=== PATIENT | male | born 1945 | race Caucasian/White ===

== ENCOUNTER 2016-12-15 18:20 | Emergency (ER) | payer MEDICARE ==
[2016-12-15 18:26] VITALS: BP 153/79; PULSE 71; TEMP 97.9; BMI 28.5
--- NOTE | 2016-12-15 20:07 | PDOC ---
History of Present Illness - General Chief Complaint: Laceration Stated Complaint: BLEEDING FROM GROIN,On Plavix Time Seen by Provider: 12/15/16 19:28 History Source: Patient, Family Exam Limitations: No Limitations - History of Present Illness Initial Comments: 12/15/16 20:02 She and came to emergency department with complaints of bleeding from groin. States had a small lesion on scrotum, scratched it with very sharp in urinalysis and was unable to stop the bleeding from the area. Patient denies fever, denies any direct trauma, denies any other problems. Is taking Hernandez for cardiac disease is never had a problem this medication. Denies dizziness, chest pain or palpitations, denies any other problems 12/15/16 20:06 12/15/16 20:08 Timing/Duration: reports: just prior to arrival, gone now Severity: Yes: mild Location: reports: none, extremities Respiratory Risk Factors: reports: no cause identified Past History - Travel Traveled outside of the country in the last 30 days: No Close contact w/someone who was outside of country & ill: No - Past Medical History Allergies/Adverse Reactions: Allergies Allergy/AdvReac Type Severity Reaction Status Date / Time No Known Allergies Allergy Verified 12/15/16 18:26 Home Medications: Ambulatory Orders Valsartan [Diovan] 80 mg PO DAILY 05/02/13 Carvedilol [Coreg -] 3.125 mg PO DAILY 07/04/16 Cholecalciferol (Vitamin D3) [Vitamin D3 -] 1,000 unit PO DAILY 07/04/16 Donepezil HCl [Aricept -] 10 mg PO DAILY 07/04/16 Rivaroxaban [Xarelto -] 20 mg PO DAILY #0 07/07/16 Wheat Dextrin [Benefiber] 144 gm PO BID #0 powder 07/07/16 Cardiac Disorders: Yes (ATRIAL FIBRILLATION) Diabetes: Yes GI Disorders: Yes (HEMORROIDS;COLON POLYPS) HTN: Yes Hypercholesterolemia: Yes - Psycho/Social/Smoking Cessation Hx Anxiety: No Suicidal Ideation: No Smoking Status: No Smoking History: Never smoked Number of Cigarettes Smoked Daily: 0 Information on smoking cessation initiated: No Hx Alcohol Use: No Drug/Substance Use Hx: No Substance Use Type: None Review of Systems - Review of Systems Able to Perform ROS?: Yes Is the patient limited Icelandic proficient: Yes Constitutional: Yes: Symptoms Reported, See HPI. No: Fever, Malaise HEENTM: No: Symptoms Reported Respiratory: No: Symptoms reported Musculoskeletal: Yes: Symptoms Reported Integumentary: Yes: See HPI, Lesions Neurological: No: Symptoms reported All Other Systems: Reviewed and Negative *Physical Exam - Vital Signs Last Vital Signs Temp Pulse Resp BP Pulse Ox 97.9 F 71 18 153/79 99 12/15/16 18:24 12/15/16 18:24 12/15/16 18:24 12/15/16 18:24 12/15/16 18:24 - Physical Exam General Appearance: Yes: Appropriately Dressed, Apparent Distress HEENT: positive: DEIRDRE, Normal ENT Inspection, TMs Normal, Pharynx Normal Neck: positive: Supple, Lymphadenopathy (R), Lymphadenopathy (L) Respiratory/Chest: positive: Lungs Clear, Normal Breath Sounds Gastrointestinal/Abdominal: positive: Soft Male Genitalia: positive: normal genitalia, other (patient with small lesion on anterior aspect of the scrotum without tenderness, or active bleed. There is no evidence of pain, swelling, abrasion, varicosity or in the area of abscess. Site of small lesion probable site of bleeding and has been hemostased. 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 No treatment necessary *DC/Admit/Observation/Transfer Diagnosis at time of Disposition: Abrasion - Discharge Dispostion Disposition: HOME Condition at time of disposition: Stable Admit: No - Patient Instructions Printed Discharge Instructions: DI for Abrasion Additional Instructions: If bleeding re-occurs - hold pressure on site for ~ 15-30mins firmly, If unable to stop then call 911/ or come back to ER Drink lots of fluids tonight- water/ soups/ teas Tell PMD about incident today- may wish to see
== END 2016-12-15 20:19 | disposition home or self-care (01) ==
LOC: JERFT 18:20
DX: S30.813A Abrasion of scrotum and testes, initial encounter (principal); W50.4XXA Accidental scratch by another person, initial encounter; Y93.89 Activity, other specified; Y92.038 Other place in apartment as the place of occurrence of the external cause; I48.91 Unspecified atrial fibrillation; Z79.01 Long term (current) use of anticoagulants; I10 Essential (primary) hypertension; E11.9 Type 2 diabetes mellitus without complications; E78.00 Pure hypercholesterolemia, unspecified
CPT/HCPCS: 99281-25

== ENCOUNTER 2017-02-09 15:51 | Inpatient (IN) | payer MEDICARE ==
[2017-02-09] MEDS ORDERED: SODIUM CHLORIDE 1,000 ML IV STA ×2 (16:43→21:18)
--- NOTE | 2017-02-09 16:51 | PDOC ---
History of Present Illness - General Chief Complaint: Blood Pressure Problem Stated Complaint: Blood Pressure Problem Time Seen by Provider: 02/09/17 16:30 History Source: Patient, Family Exam Limitations: Clinical Condition, Language Barrier - History of Present Illness Initial Comments: 02/09/17 16:46 Patient is a 71M with a history of coronary artery disease and afib here today with a complaint of altered mental status. The altered mental status has been going on for the past several days. He can participate in history taking, but is easily distracted and confused. His family members have been filling in the gaps. He's just finished a 5 day course of azithromycin for treatment of a cough with no improvement. The family reports increased lethargy and weakness with decreased PO intake. They also report increased confusion and dysarthria over the past several days. Past History - Past Medical History Allergies/Adverse Reactions: Allergies Allergy/AdvReac Type Severity Reaction Status Date / Time No Known Allergies Allergy Verified 02/09/17 16:23 Home Medications: Ambulatory Orders Valsartan [Diovan] 80 mg PO DAILY 05/02/13 Carvedilol [Coreg -] 3.125 mg PO DAILY 07/04/16 Cholecalciferol (Vitamin D3) [Vitamin D3 -] 1,000 unit PO DAILY 07/04/16 Donepezil HCl [Aricept -] 10 mg PO DAILY 07/04/16 Rivaroxaban [Xarelto -] 20 mg PO DAILY #0 07/07/16 Wheat Dextrin [Benefiber] 144 gm PO BID #0 powder 07/07/16 Isosorbide Mononitrate [Isosorbide Mononitrate ER] 60 mg PO DAILY 12/15/16 Cardiac Disorders: Yes (ATRIAL FIBRILLATION) Diabetes: Yes GI Disorders: Yes (HEMORROIDS;COLON POLYPS) HTN: Yes Hypercholesterolemia: Yes - Psycho/Social/Smoking Cessation Hx Anxiety: No Suicidal Ideation: No Smoking Status: No Smoking History: Unknown if ever smoked Have you smoked in the past 12 months: No Number of Cigarettes Smoked Daily: 0 Information on smoking cessation initiated: No Hx Alcohol Use: No Drug/Substance Use Hx: No Substance Use Type: None Review of Systems - Review of Systems Able to Perform ROS?: No (Altered mental status) *Physical Exam - Vital Signs Last Vital Signs Temp Pulse Resp BP Pulse Ox 78 18 101/65 95 02/09/17 15:51 02/09/17 15:51 02/09/17 15:51 02/09/17 15:51 - Physical Exam Comments: 02/09/17 17:18 Gen: Ill appearing, not interacting with room, tears in eyes CV: irregular rhythm, no murmurs rubs or gallops Lungs: Normal work of breathing, clear to auscultation bilaterally Abd: Soft, nontender, positve bowel sounds Ext: Irregular pulse, no edema Neuro: 5/5 strength in all 4 extremities, alert and oriented to person, place, time and situation, unable to cooperate with gait and cerebellar exams HEENT: atraumatic, normocephalic, slight right sided facial droop ED Treatment Course - LABORATORY CBC & Chemistry Diagram: 02/09/17 18:15 02/09/17 18:15 - ADDITIONAL ORDERS Additional order review: Laboratory Results 02/09/17 02/09/17 02/09/17 18:40 18:30 18:15 INR PTT (Actin FS) VBG pH 7.40 POC VBG pCO2 51.1 POC VBG pO2 27.0 L Mixed VBG HCO3 30.7 H Sodium Potassium Chloride Carbon Dioxide Anion Gap BUN Creatinine Creat Clearance w eGFR Random Glucose Lactic Acid 1.5 Calcium Total Bilirubin AST ALT Alkaline Phosphatase Creatine Kinase Troponin I Total Protein Albumin Urine Color Ltyellow Urine Appearance Clear Urine pH 5.0 Urine Protein Negative Urine Glucose (UA) 1+ H Urine Ketones Negative Urine Blood 1+ H Urine Nitrite Negative Urine Bilirubin Negative Urine Urobilinogen Negative Ur Leukocyte Esterase Negative Urine RBC 1 Urine WBC 2 02/09/17 02/09/17 18:15 18:15 INR 2.85 H PTT (Actin FS) 37.1 H VBG pH POC VBG pCO2 POC VBG pO2 Mixed VBG HCO3 Sodium 138 Potassium 3.7 Chloride 100 Carbon Dioxide 31 Anion Gap 7 L BUN 43 H Creatinine 2.4 H Creat Clearance w eGFR 26.74 Random Glucose 100 Lactic Acid Calcium 9.0 Total Bilirubin 0.6 AST 20 ALT 27 Alkaline Phosphatase 84 Creatine Kinase 90 Troponin I < 0.02 Total Protein 6.9 Albumin 3.9 Urine Color Urine Appearance Urine pH Urine Protein Urine Glucose (UA) Urine Ketones Urine Blood Urine Nitrite Urine Bilirubin Urine Urobilinogen Ur Leukocyte Esterase Urine RBC Urine WBC 02/09/17 18:15 RBC 4.56 MCV 80.6 MCHC 33.0 RDW 13.7 MPV 10.0 Neutrophils % 62.8 Lymphocytes % 24.0 Monocytes % 10.1 Eosinophils % 2.2 Basophils % 0.9 - Medications Given in the ED: ED Medications Discontinued Medications Generic Name Dose Route Start Last Admin Trade Name Shavon PRN Reason Stop Dose Admin Sodium Chloride 1,000 mls @ 1,000 mls/hr 02/09/17 16:43 02/09/17 18:20 Normal Saline - IV 02/09/17 17:42 1,000 mls/hr ASDIR STA Administration Medical Decision Making - Medical Decision Making 02/09/17 17:23 71M with PMH of afib on xarelto, dementia and CAD here today complaining of altered mental status. In afib, HR in the 60s to 70s. Other vital signs normal and stable. Unable to collect proper history from patient directly so differential is very broad and includes, but is not limited to: delirium secondary to medications, UTI, pneumonia, other infections processes, afib. Will give 1L fluids, CT scan and sepsis workup. 02/09/17 19:24 Workup pending. Vital signs stable. Signed out to Dr Arriaga. *DC/Admit/Observation/Transfer Diagnosis at time of Disposition: Altered mental status Qualifiers: Altered mental status type: unspecified Qualified Code(s): R41.82 - Altered mental status, unspecified - Attestations Physician Attestion: 02/09/17 19:25 I, Dr. Franki Garcia, attest that this document has been prepared under my direction and personally reviewed by me in its entirety. I further attest, that it accurately reflects all work, treatment, procedures and medical decision -making performed by me.
--- NOTE | 2017-02-09 18:36 | PDOC ---
Attending Attestation - Resident Resident Name: [email or web address] - ED Attending Attestation I have performed the following: I have examined & evaluated the patient, The case was reviewed & discussed with the resident, I agree w/resident's findings & plan, Exceptions are as noted - HPI HPI: 02/09/17 18:40 71 year old male with past medical history of hypertension, dementia, coronary disease, atrial fibrillation on xarelto presents with confusion and altered mental status her last several days. The patient was noted to be increasingly more weak and with less appetite. He has been with a cough that his doctors prescribed a 5 day course of azithromycin which he just completed today. The family does not think is note improvement of symptoms. Patient denies any chest pain or shortness of breath but is still coughing. The family noted today that he seemed more distant and confused than usual. They think he may be slurring his speech but there is no clear onset of time. Because of increasing confusion , the patient was sent to the ER. - Physicial Exam PE: 02/09/17 18:40 GENERAL: Awake, alert, and oriented times two, in no acute distress. HEAD: No signs of trauma EYES: PERRLA, EOMI, sclera anicteric, conjunctiva clear ENT: Auricles normal inspection, hearing grossly normal, nares patent, oropharynx clear without exudates. NECK: Normal ROM, supple, no lymphadenopathy, JVD, or masses LUNGS: Breath sounds equal, clear to auscultation bilaterally. No wheezes, and no crackles HEART: Irregular rate and rhythm, normal S1 and S2, no murmurs, rubs or gallops ABDOMEN: Soft, nontender, normoactive bowel sounds. No guarding, no rebound. No masses EXTREMITIES: Normal range of motion, no edema. No clubbing or cyanosis. No cords, erythema, or tenderness NEUROLOGICAL: CN II-XII intact, decreased sensation R maxillary region. Slight right sided facial droop. Mild slurring of speech. No pronator drift. 5/5 strength upper and lower extremities. Pt reports different sensations between arms and legs, but cannot specify exactly what is less in intensity. No cerebellar signs. SKIN: Warm, Dry, normal turgor, no rashes or lesions noted. - Medical Decision Making 02/09/17 18:43 The differential is broad for this patient include potentially CVH, stroke, infectious etiology such as pneumonia or cold urinary tract infections or metabolic disarray. The patient will need a head CT, labs including a sepsis protocol and likely admission to the hospital for further evaluation.. Heart Score/ECG Review #1 ECG reviewed & interpreted by me at: 16:20 02/09/17 18:29 atrial fibrillation 70, T wave flat III, no std/corbin, normal axis, QTC 455 msec
[2017-02-09 18:42] LABS: BASOPHIL 0.9 % (0-2.0); EOSINOPHIL 2.2 % (0-4.5); MCH 26.6 pg (25.7-33.7); MEAN CELL VOLUME 80.6 fl (80-96); NEUTROPHILS 62.8 % (42.8-82.8); PLATELET COUNT 155 K/MM3 (134-434); RDW 13.7 % (11.9-15.9); WHITE BLOOD COUNT 7.1 K/mm3 (4.0-10.0)
[2017-02-09 18:46] LABS: VENOUS BLOOD GAS HCO3 30.7 meq/L (19-25); VENOUS PH 7.4 (7.32-7.42)
[2017-02-09 18:49] LABS: INR 2.85 (0.82-1.09)
[2017-02-09 18:51] LABS: ACTIVATED PTT 37.1 SECONDS (26.9-34.4)
[2017-02-09 19:00] LABS: URINE APPEARANCE CLEAR; URINE BILIRUBIN NEGATIVE (NEGATIVE); URINE COLOR LTYELLOW; URINE GLUCOSE (UA) 1+ (NEGATIVE); URINE KETONE NEGATIVE (NEGATIVE); URINE LEUK ESTERASE NEGATIVE (NEGATIVE); URINE NITRITE NEGATIVE (NEGATIVE); URINE PROTEIN NEGATIVE (NEGATIVE); URINE UROBILINOGEN NEGATIVE E.U./dl (0.2-1.0)
[2017-02-09 19:01] LABS: ALBUMIN 3.9 g/dl (3.4-5.0); ANION GAP 7 (8-16); BILIRUBIN,TOTAL 0.6 mg/dL (0.2-1.0); CO2 31 mmol/L (21-32); CREATININE 2.4 mg/dL (0.7-1.3); GLUCOSE,RANDOM 100 mg/dL (74-106); SGOT/AST 20 U/L (15-37); SGPT/ALT 27 U/L (12-78); TOT PROT 6.9 g/dl (6.4-8.2)
[2017-02-09 19:04] LABS: ALK PHOS 84 U/L (45-117); TROPONIN I < 0.02 ng/ml (0.00-0.05)
[2017-02-09 19:09] LABS: URINE BLOOD 1+ (NEGATIVE)
[2017-02-09 19:11] LABS: URINE RBC 1 /hpf (0-3); URINE WBC 2 /hpf (3-5)
--- NOTE | 2017-02-09 19:53 | PDOC ---
*Physical Exam - Vital Signs Last Vital Signs Temp Pulse Resp BP Pulse Ox 78 18 101/65 95 02/09/17 15:51 02/09/17 15:51 02/09/17 15:51 02/09/17 15:51 - Physical Exam Comments: 02/09/17 19:48 GENERAL: Pt. is toxic appearing. Awake, alert, and fully oriented. HEAD: No signs of trauma, normocephalic, atraumatic EYES: PERRLA, EOMI, sclera anicteric, conjunctiva clear ENT: Auricles normal inspection, hearing grossly normal, nares patent, oropharynx clear without exudates. Moist mucosa NECK: Normal ROM, supple, no lymphadenopathy, JVD, or masses LUNGS: No distress, speaks full sentences, clear to auscultation bilaterally HEART: Irregular rhythm. Regular rate, normal S1 and S2, no murmurs, rubs or gallops, peripheral pulses normal and equal bilaterally. ABDOMEN: Soft, nontender, normoactive bowel sounds. No guarding, no rebound. No masses EXTREMITIES: Normal inspection, Normal range of motion, no edema. No clubbing or cyanosis. NEUROLOGICAL: Cranial nerves II through XII grossly intact. Normal speech, normal gait, no focal sensorimotor deficits SKIN: Warm, Dry, normal turgor, no rashes or lesions noted. 02/09/17 19:54 ED Treatment Course - LABORATORY CBC & Chemistry Diagram: 02/09/17 18:15 02/09/17 18:15 - ADDITIONAL ORDERS Additional order review: Laboratory Results 02/09/17 02/09/17 02/09/17 18:40 18:30 18:15 INR PTT (Actin FS) VBG pH 7.40 POC VBG pCO2 51.1 POC VBG pO2 27.0 L Mixed VBG HCO3 30.7 H Sodium Potassium Chloride Carbon Dioxide Anion Gap BUN Creatinine Creat Clearance w eGFR Random Glucose Lactic Acid Calcium Total Bilirubin AST ALT Alkaline Phosphatase Creatine Kinase Troponin I Total Protein Albumin Urine Color Ltyellow Urine Appearance Clear Urine pH 5.0 Urine Protein Negative Urine Glucose (UA) 1+ H Urine Ketones Negative Urine Blood 1+ H Urine Nitrite Negative Urine Bilirubin Negative Urine Urobilinogen Negative Ur Leukocyte Esterase Negative Urine RBC 1 Urine WBC 2 Blood Type O POSITIVE Antibody Screen Negative 02/09/17 02/09/17 02/09/17 18:15 18:15 18:15 INR 2.85 H PTT (Actin FS) 37.1 H VBG pH POC VBG pCO2 POC VBG pO2 Mixed VBG HCO3 Sodium 138 Potassium 3.7 Chloride 100 Carbon Dioxide 31 Anion Gap 7 L BUN 43 H Creatinine 2.4 H Creat Clearance w eGFR 26.74 Random Glucose 100 Lactic Acid 1.5 Calcium 9.0 Total Bilirubin 0.6 AST 20 ALT 27 Alkaline Phosphatase 84 Creatine Kinase 90 Troponin I < 0.02 Total Protein 6.9 Albumin 3.9 Urine Color Urine Appearance Urine pH Urine Protein Urine Glucose (UA) Urine Ketones Urine Blood Urine Nitrite Urine Bilirubin Urine Urobilinogen Ur Leukocyte Esterase Urine RBC Urine WBC Blood Type Antibody Screen 02/09/17 18:15 RBC 4.56 MCV 80.6 MCHC 33.0 RDW 13.7 MPV 10.0 Neutrophils % 62.8 Lymphocytes % 24.0 Monocytes % 10.1 Eosinophils % 2.2 Basophils % 0.9 - Medications Given in the ED: ED Medications Discontinued Medications Generic Name Dose Route Start Last Admin Trade Name Freq PRN Reason Stop Dose Admin Sodium Chloride 1,000 mls @ 1,000 mls/hr 02/09/17 16:43 02/09/17 18:20 Normal Saline - IV 02/09/17 17:42 1,000 mls/hr ASDIR STA Administration Progress Note - Progress Note Progress Note: Mr. Daneils is a 71 yo M who presents with h/o afb, HTN, Dementia, and COPD who presents with altered mental status. Per pt. handoff by Dr. Garcia, the patient has been confused for three days and has recently completed 5 day course of azithromycin for productive cough. He has been deteriorating over the past five days and having increasing fatigue, and weakness, and slurred speech. Family at bedside to provide report. Medical Decision Making - Medical Decision Making 02/09/17 19:58 Received Pt. Handoff from Dr. Garcia. Mr. Daniels is a 71 yo male with h/o afib, COPD, HTN, and Dementia who presents for altered mental status. He has recently received antibiotic treatment for cough with no improvement over the past five days. Family reports change in baseline activity and cognitive level with slurred speech. Given pt. comobordities and age we are actively investigating mental status change 2/2 to infectious etiology. ED course: - CBC, CMP - UA and culture - Blood Culture - Lactate - CT head: Subacute Basal Ganglia Infarct - CXR: unremarkable 02/09/17 20:04 CBC unremarkable CMP- Creatinine 2.4, BUN 43 UA- Negative Nitiries, leukocyte esterase VBG- PO2: 27 Mixed HCO3- 37 02/09/17 21:25 Heart Score - 5 02/09/17 21:36 1L NaCl *DC/Admit/Observation/Transfer Diagnosis at time of Disposition: Basal ganglia infarction, Generalized weakness, Confusion, Acute renal insufficiency Dementia Qualifiers: Dementia type: unspecified type Dementia behavioral disturbance: without behavioral disturbance Qualified Code(s): F03.90 - Unspecified dementia without behavioral disturbance - Discharge Dispostion Condition at time of disposition: Unchanged/Unknown Admit: Yes - Referrals Referrals: Shaun Marie MD [Primary Care Provider] - - Patient Instructions - Post Discharge Activity - Attestations Physician Attestion: 02/09/17 22:46 I, Dr. Vinnie Arriaga, attest that this document has been prepared under my direction and personally reviewed by me in its entirety. I further attest, that it accurately reflects all work, treatment, procedures and medical decision -making performed by me. *Heart Score (ED) - History History: Slightly suspicious - Electrocardiogram EKG: Non specific repolarization disturbance - Age Age: >/= 65 - Risk Factors Risk Factors Heart Score: Yes Hx Hypercholesterolemia, Yes Hx Hypertension, Yes Hx Diabetes Based on the list above the patient has:: >/=3 risk factors or Hx atherosclerotic disease - Troponin Troponin: </= normal limit - Score Heart Score - Total: 5
--- NOTE | 2017-02-09 20:19 | PDOC ---
*Physical Exam - Vital Signs Last Vital Signs Temp Pulse Resp BP Pulse Ox 78 18 101/65 95 02/09/17 15:51 02/09/17 15:51 02/09/17 15:51 02/09/17 15:51 <NoahJo - Last Filed: 02/09/17 21:01> - Vital Signs Last Vital Signs Temp Pulse Resp BP Pulse Ox 78 18 101/65 95 02/09/17 15:51 02/09/17 15:51 02/09/17 15:51 02/09/17 15:51 <Carlos Curtis - Last Filed: 02/09/17 21:22> ED Treatment Course - LABORATORY CBC & Chemistry Diagram: 02/09/17 18:15 02/09/17 18:15 - ADDITIONAL ORDERS Additional order review: Laboratory Results 02/09/17 02/09/17 02/09/17 18:40 18:30 18:15 INR PTT (Actin FS) VBG pH 7.40 POC VBG pCO2 51.1 POC VBG pO2 27.0 L Mixed VBG HCO3 30.7 H Sodium Potassium Chloride Carbon Dioxide Anion Gap BUN Creatinine Creat Clearance w eGFR Random Glucose Lactic Acid Calcium Total Bilirubin AST ALT Alkaline Phosphatase Creatine Kinase Troponin I Total Protein Albumin Urine Color Ltyellow Urine Appearance Clear Urine pH 5.0 Urine Protein Negative Urine Glucose (UA) 1+ H Urine Ketones Negative Urine Blood 1+ H Urine Nitrite Negative Urine Bilirubin Negative Urine Urobilinogen Negative Ur Leukocyte Esterase Negative Urine RBC 1 Urine WBC 2 Blood Type O POSITIVE Antibody Screen Negative 02/09/17 02/09/17 02/09/17 18:15 18:15 18:15 INR 2.85 H PTT (Actin FS) 37.1 H VBG pH POC VBG pCO2 POC VBG pO2 Mixed VBG HCO3 Sodium 138 Potassium 3.7 Chloride 100 Carbon Dioxide 31 Anion Gap 7 L BUN 43 H Creatinine 2.4 H Creat Clearance w eGFR 26.74 Random Glucose 100 Lactic Acid 1.5 Calcium 9.0 Total Bilirubin 0.6 AST 20 ALT 27 Alkaline Phosphatase 84 Creatine Kinase 90 Troponin I < 0.02 Total Protein 6.9 Albumin 3.9 Urine Color Urine Appearance Urine pH Urine Protein Urine Glucose (UA) Urine Ketones Urine Blood Urine Nitrite Urine Bilirubin Urine Urobilinogen Ur Leukocyte Esterase Urine RBC Urine WBC Blood Type Antibody Screen 02/09/17 18:15 RBC 4.56 MCV 80.6 MCHC 33.0 RDW 13.7 MPV 10.0 Neutrophils % 62.8 Lymphocytes % 24.0 Monocytes % 10.1 Eosinophils % 2.2 Basophils % 0.9 - Medications Given in the ED: ED Medications Discontinued Medications Generic Name Dose Route Start Last Admin Trade Name Shavon PRN Reason Stop Dose Admin Sodium Chloride 1,000 mls @ 1,000 mls/hr 02/09/17 16:43 02/09/17 18:20 Normal Saline - IV 02/09/17 17:42 1,000 mls/hr ASDIR STA Administration <Jo Zamora - Last Filed: 02/09/17 21:01> - LABORATORY CBC & Chemistry Diagram: 02/09/17 18:15 02/09/17 18:15 - ADDITIONAL ORDERS Additional order review: Laboratory Results 02/09/17 02/09/17 02/09/17 18:40 18:30 18:15 INR PTT (Actin FS) VBG pH 7.40 POC VBG pCO2 51.1 POC VBG pO2 27.0 L Mixed VBG HCO3 30.7 H Sodium Potassium Chloride Carbon Dioxide Anion Gap BUN Creatinine Creat Clearance w eGFR Random Glucose Lactic Acid Calcium Total Bilirubin AST ALT Alkaline Phosphatase Creatine Kinase Troponin I Total Protein Albumin Urine Color Ltyellow Urine Appearance Clear Urine pH 5.0 Urine Protein Negative Urine Glucose (UA) 1+ H Urine Ketones Negative Urine Blood 1+ H Urine Nitrite Negative Urine Bilirubin Negative Urine Urobilinogen Negative Ur Leukocyte Esterase Negative Urine RBC 1 Urine WBC 2 Blood Type O POSITIVE Antibody Screen Negative 02/09/17 02/09/17 02/09/17 18:15 18:15 18:15 INR 2.85 H PTT (Actin FS) 37.1 H VBG pH POC VBG pCO2 POC VBG pO2 Mixed VBG HCO3 Sodium 138 Potassium 3.7 Chloride 100 Carbon Dioxide 31 Anion Gap 7 L BUN 43 H Creatinine 2.4 H Creat Clearance w eGFR 26.74 Random Glucose 100 Lactic Acid 1.5 Calcium 9.0 Total Bilirubin 0.6 AST 20 ALT 27 Alkaline Phosphatase 84 Creatine Kinase 90 Troponin I < 0.02 Total Protein 6.9 Albumin 3.9 Urine Color Urine Appearance Urine pH Urine Protein Urine Glucose (UA) Urine Ketones Urine Blood Urine Nitrite Urine Bilirubin Urine Urobilinogen Ur Leukocyte Esterase Urine RBC Urine WBC Blood Type Antibody Screen 02/09/17 18:15 RBC 4.56 MCV 80.6 MCHC 33.0 RDW 13.7 MPV 10.0 Neutrophils % 62.8 Lymphocytes % 24.0 Monocytes % 10.1 Eosinophils % 2.2 Basophils % 0.9 - RADIOLOGY Radiology Studies Ordered: Category Date Time Status CXRPORT [CHEST X-RAY PORTABLE*] [RAD] Stat Radiology 02/09/17 20:18 Ordered - Medications Given in the ED: ED Medications Discontinued Medications Generic Name Dose Route Start Last Admin Trade Name Shavon PRN Reason Stop Dose Admin Sodium Chloride 1,000 mls @ 1,000 mls/hr 02/09/17 16:43 02/09/17 18:20 Normal Saline - IV 02/09/17 17:42 1,000 mls/hr ASDIR STA Administration <Carlos Curtis - Last Filed: 02/09/17 21:22> Progress Note - Progress Note Progress Note: Patients CT scan reveals a subacute L basal ganglia infarct, which is new since MRI done on 02/05/2016. A new chest x-ray study reordered. No white count. Urine is clean. Chemistry panel shows some renal insufficiency and no previous labs to compare with. Pt INR is elevated to 2.85. Will work towards admission and notify Dr. Shaun Marie regarding patients status. <Jo Zamora - Last Filed: 02/09/17 21:01> Medical Decision Making - Medical Decision Making 02/09/17 20:[address] Shaun Marie (via answering service) Awaiting call back 02/09/17 20:43 Patient's case discussed with Dr. Marie 02/09/17 20:[address] Vinay Howard (via answering service) Awaiting call back 02/09/17 21:01 Patient's case discussed with Dr. Howard <Jo Zamora - Last Filed: 02/09/17 21:01> - Medical Decision Making 02/09/17 21:21 Patient will be admitted and hydrated. Dr. Marie and Dr. Howard notified. Dr. 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 <Carlos Curtis - Last Filed: 02/09/17 21:22> *DC/Admit/Observation/Transfer - Attestations Scribe Attestion: 02/09/17 20:25 Documentation prepared by Jo Zamora, acting as spanish medical interpreter for Carlos Curtis MD/DO. <Jo Zamora - Last Filed: 02/09/17 21:01> <Carlos Curtis - Last Filed: 02/09/17 21:22> Diagnosis at time of Disposition: Basal ganglia infarction, Generalized weakness, Confusion, Acute renal insufficiency Dementia Qualifiers: Dementia type: unspecified type Dementia behavioral disturbance: without behavioral disturbance Qualified Code(s): F03.90 - Unspecified dementia without behavioral disturbance - Discharge Dispostion Condition at time of disposition: Unchanged/Unknown - Referrals Referrals: Shaun Marie MD [Primary Care Provider] - - Patient Instructions - Post Discharge Activity
[2017-02-09 23:57] VITALS: BMI 25.4
[2017-02-10] MEDS: DEXTROSE 5%-0.45% SALINE 1,000 ML IV SCH ×2 (00:15→21:17)
[2017-02-10 07:14] LABS: MCH 27.2 pg (25.7-33.7); MCHC 33.7 g/dl (32.0-35.9); MEAN CELL VOLUME 80.8 fl (80-96); MEAN PLT VOLUME 10.1 fl (7.5-11.1); PLATELET COUNT 141 K/MM3 (134-434); RDW 13.3 % (11.9-15.9); WHITE BLOOD COUNT 6.6 K/mm3 (4.0-10.0)
[2017-02-10 07:49] LABS: ALBUMIN 3.4 g/dl (3.4-5.0); ANION GAP 8 (8-16); CALCIUM 8.5 mg/dL (8.5-10.1); CO2 28 mmol/L (21-32); CREATININE 1.5 mg/dL (0.7-1.3); GLUCOSE,RANDOM 113 mg/dL (74-106); SGOT/AST 20 U/L (15-37); SGPT/ALT 24 U/L (12-78); TOT PROT 6.2 g/dl (6.4-8.2)
[2017-02-10 07:53] LABS: ALK PHOS 75 U/L (45-117); BILIRUBIN,TOTAL 0.9 mg/dL (0.2-1.0)
--- NOTE | 2017-02-10 09:27 | HP ---
Admitting History and Physical - Primary Care Physician PCP: Shaun Marie - Admission Chief Complaint: AMS History of Present Illness: ER HISTORY History of Present Illness Initial Comments: 02/09/17 16:46 Patient is a 71M with a history of coronary artery disease and afib here today with a complaint of altered mental status. The altered mental status has been going on for the past several days. He can participate in history taking, but is easily distracted and confused. His family members have been filling in the gaps. He's just finished a 5 day course of azithromycin for treatment of a cough with no improvement. The family reports increased lethargy and weakness with decreased PO intake. They also report increased confusion and dysarthria over the past several days. Pt examined by me in Telemetry Lying in bed, lethargic but arousable Follows commands Ex alcoholic, also suffers from depression no c/o SOB, cough, chest pain History Source: Patient, Medical Record Limitations to Obtaining History: Physical Impairment - Past Medical History Cardiovascular: Yes: AFIB, CAD, HTN - Smoking History Smoking history: Former smoker Have you smoked in the past 12 months: No Aproximately how many cigarettes per day: 0 If you are a former smoker, when did you quit?: 10 YEARS AGO - Alcohol/Substance Use Hx Alcohol Use: No Home Medications - Allergies Allergies/Adverse Reactions: Allergies Allergy/AdvReac Type Severity Reaction Status Date / Time No Known Allergies Allergy Verified 02/09/17 16:23 - Home Medications Home Medications: Ambulatory Orders Valsartan [Diovan] 80 mg PO DAILY 05/02/13 Cholecalciferol (Vitamin D3) [Vitamin D3 -] 1,000 unit PO DAILY 07/04/16 Rivaroxaban [Xarelto -] 20 mg PO DAILY #0 07/07/16 Atorvastatin Ca [Lipitor] 10 mg PO HS 02/09/17 Isosorbide Mononitrate [Imdur -] 30 mg PO DAILY 02/09/17 Memantine HCl/Donepezil HCl [Namzaric 28 mg-10 mg Capsule] 1 each PO DAILY 02/09 Metoprolol Succinate [Toprol Xl] 50 mg PO DAILY 02/09/17 Mirtazapine [Remeron -] 15 mg PO HS 02/09/17 Review of Systems - Review of Systems Constitutional: denies: Chills, Fever, Lethargy, Loss of Appetite, Unintentional Wgt. Loss, Weakness Cardiovascular: denies: Chest Pain Respiratory: denies: Cough, SOB Genitourinary: denies: Burning, Dysuria, Flank Pain Physical Examination Vital Signs: Vital Signs Temperature 98.1 F 02/10/17 06:00 Pulse Rate 80 02/10/17 06:00 Respiratory Rate 20 02/10/17 06:00 Blood Pressure 124/79 02/10/17 06:00 O2 Sat by Pulse Oximetry (%) 98 02/09/17 23:15 Constitutional: Yes: No Distress, Calm Cardiovascular: Yes: Pulse Irregular Respiratory: Yes: CTA Bilaterally Gastrointestinal: Yes: Normal Bowel Sounds, Soft, Abdomen, Obese. No: Distention, Tenderness Neurological: No: Aphasia, Ataxia ...Motor Strength: WNL Psychiatric: Yes: Alert Labs: CBC, BMP 02/10/17 05:35 02/10/17 05:35 Imaging - Results Chest X-ray: Image Reviewed (clear) Cat Scan: Report Reviewed EKG: Image Reviewed (Afib) Problem List - Problems (1) Acute renal insufficiency Code(s): N28.9 - DISORDER OF KIDNEY AND URETER, UNSPECIFIED (2) Basal ganglia infarction Code(s): I63.9 - CEREBRAL INFARCTION, UNSPECIFIED (3) Confusion Code(s): R41.0 - DISORIENTATION, UNSPECIFIED (4) Dementia Code(s): F03.90 - UNSPECIFIED DEMENTIA WITHOUT BEHAVIORAL DISTURBANCE Qualifiers: Dementia type: unspecified type Dementia behavioral disturbance: without behavioral disturbance Qualified Code(s): F03.90 - Unspecified dementia without behavioral disturbance (5) Generalized weakness Code(s): R53.1 - WEAKNESS (6) Altered mental state Code(s): R41.82 - ALTERED MENTAL STATUS, UNSPECIFIED Qualifiers: Altered mental status type: unspecified Qualified Code(s): R41.82 - Altered mental status, unspecified (7) Afib Code(s): I48.91 - UNSPECIFIED ATRIAL FIBRILLATION Assessment/Plan PLAN Telemetry Neuro and Cardio eval Swallow eval NPO IV fluids PT eval carotid doppler echo will speak with family no evidence of infection Brain MRI continue with Xarelto pending swallow eval Time spent 45min
[2017-02-10] MEDS: RIVAROXABAN 20 MG TABLET PO SCH ×2 (10:14→15:45)
[2017-02-10] MEDS: METOPROLOL SUCCINATE 50 MG TAB.SR.24H (FP) PO SCH ×2 (10:14→15:45)
[2017-02-10] MEDS: ISOSORBIDE MONONITRATE 30 MG TAB.SR.24H (FP) PO SCH ×2 (10:14→15:45)
[2017-02-10] MEDS: MEMANTINE PO SCH ×2 (10:14→15:45)
[2017-02-10] MEDS: [UNRECOGNIZED DRUG - OTHER] PO SCH ×2 (10:14→15:45)
--- NOTE | 2017-02-10 10:25 | CON.CARD ---
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 basal ganglia infarct. States over the past month has had significant decrease in po intake and has lost > 10 lbs. + worsening of depressive symptoms. Over the past week bp's have been significantly lower than baseline (in 100's). + recent uri with cough and congestion--> tx with abx. + dizziness, unstable gait + stable exertional cp no orthopnea, pnd, le edema, palps, bleeding. no f/c/s, n/v/d, headache, increased urinary frequency. Since our last office visit he had R/LHC to evaluate sx's of exertional cp and inducible phtn. Current Medications Atorvastatin Calcium (Lipitor -) 10 mg PO [facility] Dextrose/Sodium Chloride (D5-1/2ns -) 1,000 mls @ 100 mls/hr IV ASDIR [facility] Last Admin: 02/10/17 00:15 Dose: 100 mls/hr Isosorbide Mononitrate (Imdur -) 30 mg PO DAILY [facility] Last Admin: 02/10/17 10:14 Dose: Not Given Metoprolol Succinate (Toprol Xl -) 50 mg PO DAILY [facility] Last Admin: 02/10/17 10:14 Dose: Not Given Memantine 28mg/Donepezil 10mg *Er* Capsule 1 each PO DAILY [facility] Last Admin: 02/10/17 10:14 Dose: Not Given Pneumococcal 13-Valent Conj Vacc (Prevnar 13 Syringe -) 0.5 ml IM .ONCE ONE Stop: 02/10/17 10:01 Rivaroxaban (Xarelto -) 20 mg PO DAILY [facility] Last Admin: 02/10/17 10:14 Dose: Not Given Vital Signs - 24 hr 02/09/17 02/09/17 02/09/17 15:51 22:47 23:15 Temperature 97.7 F 97.8 F Pulse Rate 78 76 Pulse Rate [ 72 Right Radial] Respiratory 18 16 18 Rate Blood Pressure 101/65 115/74 Blood Pressure 116/73 [Right Arm] O2 Sat by Pulse 95 98 98 Oximetry (%) 02/09/17 02/10/1717 23:30 02:00 06:00 Temperature 97.6 F 97.5 F L 98.1 F Pulse Rate 73 80 Pulse Rate [ Right Radial] Respiratory 20 20 Rate Blood Pressure 116/68 124/79 Blood Pressure [Right Arm] O2 Sat by Pulse Oximetry (%) Intake & Output 02/08/17 02/09/17 02/10/17 02/11/17 07:59 07:59 07:59 07:59 Intake Total 675 Output Total 500 Balance 175 Weight 170 lb 9.6 oz lethargic, but responsive jvd flat, neck supple ctab, nl effort rrr nl s1, s2 no mrg + bs soft nt nd ext without e/c/c + dp/pt no carotid bruits no jaundice, diahporesis CBC, BMP 02/10/17 05:35 02/10/17 05:35 Laboratory Tests 02/09/17 02/09/17 02/10/17 18:15 18:15 05:35 INR 2.85 H Creatinine 2.4 H Total Bilirubin 0.9 D AST 20 ALT 24 Alkaline Phosphatase 75 Albumin 3.4 EKG: afib. no acute ischemic changes tele: afib, freq pvc's CXR: wnl brain mri: negative for infarct head ct here: acute/subacute lt basal ganglia infarct carotid u/s: no sig stenosis Echo 11/2016: afib. nl lv size/fn ef 60-65%. Mild rv dilation, nl function. 1+ susan. 1+ ar/mr. cath [facility] [place]/2017: LVEDP 15, RA 7 mPAP 20 . pRCA < 30% but with significant vasospasm noted (Relieved by ntg), d [id number]%, TO of OM1 (small - fills via LAD collaterals --> no intervention) 09/2016 stress echo: afib with aberrant conduction,--> pvc's, triplets in recovery. 0.5 mm inferior std in recovery. --> non-diagnostic. At rest. Mild inducible HK of basal inferior wall. RV dilation (preserved function) and severe pHTN with stress. Mod MR with stress. 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 basal ganglia infarct. AMS - ? lt basal ganglia infarct on head ct but not on MRI. will defer to neuro. Per neuro ok to con't xarelto. - patient also with underlying dementia and presented with NEL. Monitor for improvement with improving creatinine - ? etiology of recent poor po intake. patient with h/o prior etoh abuse as well as severe depression --> possible relapse? Will defer to pmd/neuro - tsh, other lab work pending. CAD - stable anginal sx's. ekg without ischemic changes. trop neg x 1. Recent cath last month with ++ vasospasm, + cad but no intervenable disease - con't statin, imdur. ? whether BB contributing to possible depressive symptoms. Will switch to verapamil and stop metoprolol/imdur. - no asa, on AC NEL/hypotension - likely 2/2 poor po intake. improving with ivf. - infectious eval per pmd afib - rate controlled, con't av john blockade and AC with xarelto. - patient has previously failed to maintain therapeutic inr's on coumadin -inducible phtn - no phtn at rest. normal right sided pressures on recent cath. ? whether vasospasm contributing vs. diastolic dysfunction - not contributing to current sx's. ongoing outpatient mgm't htn - as above hl - statin
--- NOTE | 2017-02-10 10:41 | CON.NEURO ---
Consult Consult Specialty:: Neurology Reason for Consultation:: stroke - History of Present Illness Chief Complaint: unsteadiness History of Present Illness: Over the last week and a half the patient has seemed more off balance and confused. Yesterday, his tried to take him out and while they were waiting for a bus he almost fell and so they went home, and he was brought to ER. He complains of left sided weakness, but I'm not sure about his reliability. His family reports that he normally walks, but he's been unsteady over the last week and a half, and worse yesterday. They say that he has mild dementia but has been more confused, particularly yesterday. - History Source History Provided By: Patient, Family Member, Medical Record Limitations to Obtaining History: Dementia - Past Medical History MEDICATION ASSISTANT: Yes: Dementia, Other (tremor) Cardio/Vascular: Yes: AFIB, CAD, HTN - Alcohol/Substance Use Hx Alcohol Use: No - Smoking History Smoking history: Former smoker Have you smoked in the past 12 months: No Aproximately how many cigarettes per day: 0 If you are a former smoker, when did you quit?: 10 YEARS AGO Home Medications - Allergies Allergies/Adverse Reactions: Allergies Allergy/AdvReac Type Severity Reaction Status Date / Time No Known Allergies Allergy Verified 02/09/17 16:23 - Home Medications Home Medications: Ambulatory Orders Valsartan [Diovan] 80 mg PO DAILY 05/02/13 Cholecalciferol (Vitamin D3) [Vitamin D3 -] 1,000 unit PO DAILY 07/04/16 Rivaroxaban [Xarelto -] 20 mg PO DAILY #0 07/07/16 Atorvastatin Ca [Lipitor] 10 mg PO HS 02/09/17 Isosorbide Mononitrate [Imdur -] 30 mg PO DAILY 02/09/17 Memantine HCl/Donepezil HCl [Namzaric 28 mg-10 mg Capsule] 1 each PO DAILY 02/09 Metoprolol Succinate [Toprol Xl] 50 mg PO DAILY 02/09/17 Mirtazapine [Remeron -] 15 mg PO HS 02/09/17 Review of Systems - Review of Systems Neurological: reports: Confusion, Tremors, Unsteady Gait Physical Exam-Neuro Vital Signs: Vital Signs Temperature 98.1 F 02/10/17 06:00 Pulse Rate 80 02/10/17 06:00 Respiratory Rate 20 02/10/17 06:00 Blood Pressure 124/79 02/10/17 06:00 O2 Sat by Pulse Oximetry (%) 98 02/09/17 23:15 Labs: CBC, BMP 02/10/17 05:35 02/10/17 05:35 INR, PTT INR 2.85 (0.82-1.09) H 02/09/17 18:15 NIH Stroke Scale - Total Score NIH Stroke Scale Score: 0 Imaging - Results Cat Scan: Report Reviewed (Image not available. Acute to subacute left basal ganglia infarction. Old cerebellar infarcts.) Problem List - Problems (1) Basal ganglia infarction Assessment/Plan: Although I don't think that this occurred yesterday, it may be part of why he's been altered over the last couple of weeks. Will need MRI brain if no contraindications and carotid dopplers. Continue xarelto. Code(s): I63.9 - CEREBRAL INFARCTION, UNSPECIFIED (2) Confusion Assessment/Plan: although stroke may have contributed, would also consider metabolic and cardiovascular possibilities. Code(s): R41.0 - DISORIENTATION, UNSPECIFIED
--- NOTE | 2017-02-10 12:32 | CONSULT ---
Admitting History and Physical - Primary Care Physician PCP: Josephine Otoole - Admission History of Present Illness: Per EMR: "71 year old male with past medical history of hypertension, dementia, coronary disease, atrial fibrillation on xarelto presents with confusion and altered mental status her last several days. The patient was noted to be increasingly more weak and with less appetite. He has been with a cough that his doctors prescribed a 5 day course of azithromycin which he just completed today. The family does not think is note improvement of symptoms. Patient denies any chest pain or shortness of breath but is still coughing. The family noted today that he seemed more distant and confused than usual. They think he may be slurring his speech but there is no clear onset of time. Because of increasing confusion , the patient was sent to the ER." Pt is bilingual. Oriented to [facility], [place], 2017, not month,age. He reports change in his speech. Noted twitches, jumpiness. He told me he drinks 3-4 beer daily. He quit smoking 10 years ago. Selected Entries 02/09/17 02/09/17 02/09/17 22:47 23:15 23:30 Temperature 97.7 F 97.8 F 97.6 F 02/10/17 02/10/17 02/10/17 02:00 06:00 10:00 Temperature 97.5 F L 98.1 F 97.9 F 02/10/17 14:46 Temperature 98.5 F Laboratory Tests 02/09/17 02/10/17 18:15 05:35 WBC 7.1 6.6 History Source: Patient, Medical Record Limitations to Obtaining History: Clinical Condition, Dementia - Past Medical History EDGE PLUGGER: Yes: Dementia, Other (tremor) Cardiovascular: Yes: AFIB, CAD, HTN - Smoking History Smoking history: Former smoker Have you smoked in the past 12 months: No Aproximately how many cigarettes per day: 0 If you are a former smoker, when did you quit?: 10 YEARS AGO - Alcohol/Substance Use Hx Alcohol Use: No History - Admission Reason For Visit: BASAL GANGLIA INFRACTION. - Diagnostics CT Scan: Report Reviewed (Acute to subacute left basal ganglia infarction.Several cerebellar infarcts of indeterminate age.) MRI: Report Reviewed ((-) acute stroke.) - General Mental Status: Awake and Alert, Able to Follow Commands, Forgetful, Intermittently Confused Attention: Intact Ability to Follow Directions: Fair Head/Neck Control: Fair - Hearing Hearing: Normal Hearing Aide: No Speech Evaluation - Communication Primary Language: ITALIAN Secondary Language: IRISH (functional) Communication: Yes: Simple Responses, Language Barrier Oral Expression Ability: Yes: Mild Impairment, Moderate Impairment - Speech Production Able to Make Needs Known: Yes: Mildly Impaired, Moderately Impaired Intelligibility: Yes: Mildly Impaired, Moderately Impaired - Speech Characteristics Voice Loudness: Mildly Soft/Quiet Voice Pitch: Yes: Mildly High, Excessive Variation, Pitch Breaks Voice Phonatory-based Quality: Yes: Dysphonia Speech Pattern: Impaired Speech Clarity: < 50% Nasal Resonance: Normal Articulation: Yes: Imprecise Rate of Speech: Intact - Language/Auditory Comprehension Follows: Yes: 1 Stage Simple Commands Observation: Able to respond to yes/no queries: Yes, Comprehends Conversational Speech: Yes, Benefits from Slow Speech: Yes, Benefits from Repetiton: Yes - Language/Verbal Expression Able to Respond to Simple Queries: Yes: Mildly Impaired - Swallow Evaluation/Bedside Assessment Current Nutritional Intake: NPO Oral Secretions: Yes: WFL Dentition: Yes: Missing Teeth Facial Symmetry at Rest: Symmetrical Facial Symmetry on Retraction: Symmetrical Jaw Position: Open at Rest Against Resistance Opening: Normal Against Resistance Closing: Normal Pucker Lips: Normal Smile: Normal Lingual Movement: Normal Laryngeal Movement: Able to Palpate Rate of Intake: WFL Bolus Size: WFL Labial Seal: WFL Chewing: WFL Oral Prep Time: WFL A-P Transit: WFL Pocketing: None Timing of Swallow: Delayed Coughing/Throat Clear: No Change in Voice: No Recommendations - Speech Evaluation, Impression/Plan Impression: Impaired speech production with dysphonia, ataxic-like.Twitches/ jerky movements. Somewhat oriented. h/o dementia. MRI (-).Overtly able to masticate/tolerate thin liquid from a straw. Pt reports change in his speech. Family not present. Reports drinking 3-4 beer daily. - Dysphagia Impressions/Plan Dysphagia Impressions: Mild Impairment *Silent aspiration: cannot be R/O at bedside Dysphagia Treatment Plan: Small Bites, Chin Tuck/Down, Elevate HOB during feed, Other (assist with meals. Feed slowly.) Recommendations: Modified Barium Swallow (if cough, congestion, fever, throat clearing.) - Recommendations Diet Consistency: Regular (soft) Medication Administration: Whole with water Liquids: Thin Liquids
[2017-02-10] MEDS ORDERED: PNEUMOC 13-VAL CONJ-DIP CRM/PF 0.5 ML DISP.SYRIN IM ONE (13:00)
[2017-02-10] MEDS: ATORVASTATIN CA 10 MG TABLET (FP) PO SCH (21:16)
[2017-02-10] MEDS: KCL 10 MEQ IVPB 100 ML IVPB SCH ×2 (22:31→23:37)
[2017-02-11] MEDS: KCL 10 MEQ IVPB 100 ML IVPB SCH (01:46)
[2017-02-11 08:47] LABS: ANION GAP 7 (8-16); CALCIUM 8.5 mg/dL (8.5-10.1); CO2 31 mmol/L (21-32); GLUCOSE,RANDOM 111 mg/dL (74-106)
[2017-02-11 08:53] LABS: CHOLESTEROL 115 mg/dL (50-200)
[2017-02-11] MEDS: DEXTROSE 5%-0.45% SALINE 1,000 ML IV SCH (09:00)
--- NOTE | 2017-02-11 10:05 | PN ---
Progress Note (short form) - Note Progress Note: s: no cp sob palps dizzy o: Vital Signs Period Temp Pulse Resp BP Sys/Johnson Pulse Ox Last 24 Hr 97.9 F-98.9 F 66-83 18-18 106-135/50-80 97 nad jvd flat, neck supple ctab, nl effort rrr nl s1, s2 no mrg + bs soft nt nd ext without e/c/c no jaundice, diahporesis alert awake appropriate Current Medications Generic Name Dose Route Start Last Admin Trade Name Freq PRN Reason Stop Dose Admin Atorvastatin Calcium 10 mg 02/10/17 22:00 02/10/17 21:16 Lipitor - PO 10 mg HS VIVIANA Administration Dextrose/Sodium Chloride 1,000 mls @ 100 mls/hr 02/10/17 02:30 02/10/17 21:17 D5-1/2ns - IV 100 mls/hr ASDIR VIVIANA Administration Memantine 28mg/ 1 each 02/10/17 10:00 02/10/17 15:45 Donepezil 10mg *Er* PO 1 each Capsule DAILY VIVIANA Administration Rivaroxaban 15 mg 02/11/17 10:00 Xarelto - PO DAILY VIVIANA Verapamil HCl 120 mg 02/11/17 10:00 Calan Sr - PO DAILY VIVIANA CBC, BMP 02/10/17 05:35 02/11/17 05:35 tele: afib,rate controlled CXR: wnl brain mri: negative for infarct head ct here: acute/subacute lt basal ganglia infarct carotid u/s: no sig stenosis Echo 11/2016: afib. nl lv size/fn ef 60-65%. Mild rv dilation, nl function. 1+ susan. 1+ ar/mr. cath [facility] [place] 01/2017: LVEDP 15, RA 7 mPAP 20 . pRCA < 30% but with significant vasospasm noted (Relieved by ntg), d [id number]%, TO of OM1 (small - fills via LAD collaterals --> no intervention) 09/2016 stress echo: afib with aberrant conduction,--> pvc's, triplets in recovery. 0.5 mm inferior std in recovery. --> non-diagnostic. At rest. Mild inducible HK of basal inferior wall. RV dilation (preserved function) and severe pHTN with stress. Mod MR with stress. 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 basal ganglia infarct. AMS - ? lt basal ganglia infarct on head ct but not on MRI. will defer to neuro. Per neuro ok to con't xarelto. - patient also with underlying dementia and presented with NEL. Monitor for improvement with improving creatinine - ? etiology of recent poor po intake. patient with h/o prior etoh abuse as well as severe depression --> possible relapse? CAD - stable, no signs acs - Recent cath last month with ++ vasospasm, + cad but no intervenable disease - con't statin, imdur. ? whether BB contributing to possible depressive symptoms so switched to verapamil and stopped metoprolol/imdur here - no asa, on AC NEL/hypotension - likely 2/2 poor po intake. improving with ivf. - infectious eval per pmd afib - rate controlled, con't av john blockade and AC with xarelto. - patient has previously failed to maintain therapeutic inr's on coumadin -inducible phtn - no phtn at rest. normal right sided pressures on recent cath. ? whether vasospasm contributing vs. diastolic dysfunction - not contributing to current sx's. ongoing outpatient mgm't htn - as above hld - statin
--- NOTE | 2017-02-11 10:09 | PN ---
Progress Note, Physician Chief Complaint: family at bedside pt sitting up in chair at baseline son states that the pt does get depressed thinking about family members who have passes away eating well - Current Medication List Current Medications: Active Medications Atorvastatin Calcium (Lipitor -) 10 mg PO HS [facility] Last Admin: 02/10/17 21:16 Dose: 10 mg Dextrose/Sodium Chloride (D5-1/2ns -) 1,000 mls @ 100 mls/hr IV ASDIR [facility] Last Admin: 02/10/17 21:17 Dose: 100 mls/hr Memantine 28mg/Donepezil 10mg *Er* Capsule 1 each PO DAILY [facility] Last Admin: 02/10/17 15:45 Dose: 1 each Rivaroxaban (Xarelto -) 15 mg PO DAILY [facility] Verapamil HCl (Calan Sr -) 120 mg PO DAILY [facility] - Objective Vital Signs: Vital Signs Temperature 98.3 F 02/11/17 06:00 Pulse Rate 77 02/11/17 06:00 Respiratory Rate 18 02/11/17 06:00 Blood Pressure 121/50 02/11/17 06:00 O2 Sat by Pulse Oximetry (%) 97 02/10/17 21:00 Constitutional: Yes: No Distress, Calm Cardiovascular: Yes: Pulse Irregular Respiratory: Yes: CTA Bilaterally Gastrointestinal: Yes: Normal Bowel Sounds, Soft. No: Distention, Tenderness Edema: No Labs: CBC, BMP 02/10/17 05:35 02/11/17 05:35 INR, PTT INR 2.85 (0.82-1.09) H 02/09/17 18:15 Problem List - Problems (1) Acute renal insufficiency Code(s): N28.9 - DISORDER OF KIDNEY AND URETER, UNSPECIFIED (2) Basal ganglia infarction Code(s): I63.9 - CEREBRAL INFARCTION, UNSPECIFIED (3) Confusion Code(s): R41.0 - DISORIENTATION, UNSPECIFIED (4) Dementia Code(s): F03.90 - UNSPECIFIED DEMENTIA WITHOUT BEHAVIORAL DISTURBANCE Qualifiers: Dementia type: unspecified type Dementia behavioral disturbance: without behavioral disturbance Qualified Code(s): F03.90 - Unspecified dementia without behavioral disturbance (5) Generalized weakness Code(s): R53.1 - WEAKNESS (6) Afib Code(s): I48.91 - UNSPECIFIED ATRIAL FIBRILLATION Assessment/Plan PLAN Telemetry Neuro and Cardio eval appreciated Swallow eval noted dc IV fluids PT eval carotid doppler-- negative Brain MRI does not show infarct pt was an ex alcoholic, also depressed start Thiamine, will also start low dose antidepressant- son agreed no evidence of infection-- cultures negative renal function improved continue with Xarelto
[2017-02-11] MEDS: RIVAROXABAN 15 MG TABLET PO SCH (10:45)
[2017-02-11] MEDS: VERAPAMIL HCL 120 MG E.R. TABLET PO SCH (10:45)
[2017-02-11] MEDS: [UNRECOGNIZED DRUG - OTHER] PO SCH (10:45)
[2017-02-11] MEDS: MEMANTINE PO SCH (10:45)
--- NOTE | 2017-02-11 10:55 | PN ---
Progress Note (short form) - Note Progress Note: 71 year old male known to me for outpt, with past medical history of hypertension, dementia, coronary disease, atrial fibrillation on xarelto presents with confusion and altered mental status her last several days. The patient was noted to be increasingly more weak and with less appetite. He has been with a cough that his doctors prescribed a 5 day course of azithromycin . noted for elevated creatinine on admission. low BP. MRI (-) for new stroke, see below. back to baseline, Exam: baseline dementia, recognizes family, aware of place, EOMI, mild tremor, no focal weakness Reports. Impression: Mild intimal thickening at the right common carotid bifurcation without evidence of hemodynamically significance seen cyst. Moderate intimal thickening in the distal left common carotid artery and at the bifurcation with small plaques and without evidence of hemodynamically significant stenosis. Borderline peak systolic velocity in the proximal left internal carotid artery likely due to tortuosity. 02/10/17 Status: [place] [address] Unit Number: [id number] EXAM#: TYPE/EXAM: RESULT: [id number] MRI/BRAIN MRI W/O CONTRAST Clinical formation stroke MRI of the brain without IV contrast enhancement. Multiple pulse sequences were completed utilizing the [employer] 1.5T. Signa MRI system. Sagittal: T1. Axial: T2, FLAIR, T2 gradient echo, diffusion- weighted. Coronal. T1 FLAIR. Comparison study. CT brain February 09, 2017, MRI of the brain February 05, 2016. Findings. The intracranial contents are shown well from the [place] to the cranial vertex. No evidence of acute ischemia, edema or hemorrhage. There is no mass effect, midline shift, intra or extra axial collections. Periventricular caps, bands attributable to breakdown of ependymal lining, increase extra-axial fluid and subependymal gliosis noted. Several foci of increased signal intensity observed in the subcortical white matter on the basis of chronic small vessel microangiopathic ischemic changes. Generalized loss of volume of the brain parenchyma with involutional changes Normal corpus callosum is noted. The major caliber vascular structures including the [place] and peripheral dural venous sinuses show normal flow-void signal characteristics. No abnormality seen in the pontomedullary junction region. No evidence of tonsillar ectopia. No abnormalities are seen in the sella, suprasellar region. Normal pituitary infundibulum, optic chiasm. The orbits are within normal limits. Symmetrical optic nerves, extraocular muscles. Normal signal intensity of retro orbital fat. No abnormalities are seen in region of CP angle cisterns. Nonspecific mucosal changes are seen in the left sphenoid sinus. The nasal septum is deviated to the right side. Normal signal intensity of the calvarium. Impression. No acute infarct is seen on diffusion-weighted images. AP: Encephalopathy, AFIB , underlying dementia -- no new stroke, likely ARF and low BP contributing issues --looking better. may need to adjust BP meds -- given low BP. stable from neuro stand point. Dr Howard [phone] .
[2017-02-11 11:39] LABS: LDL CHOLESTEROL (ONLY SJRH) 63 mg/dL (5-100)
[2017-02-11 11:47] LABS: THYROID STIMULATING HORMONE 0.93 uIU/ml (0.358-3.74)
[2017-02-11] MEDS: THIAMINE HCL 100 MG TABLET (FP) PO SCH (13:58)
--- NOTE | 2017-02-11 14:23 | PN ---
Progress Note, JUDICIAL REPORTER - Note Progress Note: Per neurology-Encephalopathy, AFIB , underlying dementia -- no new stroke Speech much improved since yesterday, with more euphonic voicing and let twitching. Selected Entries 02/10/17 02/10/17 02/10/17 02:00 06:00 10:00 Breakfast Intake, Oral Amount Supper Temperature 97.5 F L 98.1 F 97.9 F 02/10/17 02/10/17 02/10/17 14:46 18:00 21:00 Breakfast Intake, Oral Amount Supper 50% Temperature 98.5 F 98.9 F 98.4 F 02/11/17 02/11/17 02/11/17 01:42 06:00 09:59 Breakfast 75% Intake, Oral 420 Amount Supper Temperature 97.9 F 98.3 F 02/11/17 02/11/17 10:43 10:45 Breakfast 75% Intake, Oral 100 Amount Supper Temperature 98 F tolerating diet well.
[2017-02-11] MEDS: ATORVASTATIN CA 10 MG TABLET (FP) PO SCH (22:17)
[2017-02-12 06:23] VITALS: TEMP 98.4
[2017-02-12] MEDS ORDERED: PT OWN MED DRAWER 7, Y5N ONE (08:36)
[2017-02-12] MEDS: MEMANTINE PO SCH (09:57)
[2017-02-12] MEDS: THIAMINE HCL 100 MG TABLET (FP) PO SCH (09:57)
[2017-02-12] MEDS: [UNRECOGNIZED DRUG - OTHER] PO SCH (09:57)
[2017-02-12] MEDS: VERAPAMIL HCL 120 MG E.R. TABLET PO SCH (09:57)
[2017-02-12] MEDS: RIVAROXABAN 15 MG TABLET PO SCH (09:57)
--- NOTE | 2017-02-12 10:21 | PN ---
Progress Note, Physician Chief Complaint: no complaints states he feels shaky at times - Current Medication List Current Medications: Active Medications Atorvastatin Calcium (Lipitor -) 10 mg PO HS [facility] Last Admin: 02/11/17 22:17 Dose: 10 mg Memantine 28mg/Donepezil 10mg *Er* Capsule 1 each PO DAILY [facility] Last Admin: 02/12/17 09:57 Dose: 1 each Rivaroxaban (Xarelto -) 15 mg PO DAILY [facility] Last Admin: 02/12/17 09:57 Dose: 15 mg Thiamine HCl (Vitamin B1 -) 100 mg PO DAILY [facility] Last Admin: 02/12/17 09:57 Dose: 100 mg Verapamil HCl (Calan Sr -) 120 mg PO DAILY [facility] Last Admin: 02/12/17 09:57 Dose: Not Given - Objective Vital Signs: Vital Signs Temperature 98.4 F 02/12/17 06:00 Pulse Rate 73 02/12/17 10:00 Respiratory Rate 18 02/12/17 06:00 Blood Pressure 98/58 02/12/17 10:00 O2 Sat by Pulse Oximetry (%) 96 02/11/17 20:57 Constitutional: Yes: No Distress, Calm Cardiovascular: Yes: Pulse Irregular Respiratory: Yes: CTA Bilaterally Gastrointestinal: Yes: Normal Bowel Sounds, Soft. No: Distention, Tenderness Edema: No Labs: CBC, BMP 02/10/17 05:35 02/11/17 05:35 INR, PTT INR 2.85 (0.82-1.09) H 02/09/17 18:15 Problem List - Problems (1) Acute renal insufficiency Code(s): N28.9 - DISORDER OF KIDNEY AND URETER, UNSPECIFIED (2) Confusion Code(s): R41.0 - DISORIENTATION, UNSPECIFIED (3) Dementia Code(s): F03.90 - UNSPECIFIED DEMENTIA WITHOUT BEHAVIORAL DISTURBANCE Qualifiers: Dementia type: unspecified type Dementia behavioral disturbance: without behavioral disturbance Qualified Code(s): F03.90 - Unspecified dementia without behavioral disturbance (4) Generalized weakness Code(s): R53.1 - WEAKNESS (5) Afib Code(s): I48.91 - UNSPECIFIED ATRIAL FIBRILLATION Assessment/Plan PLAN Telemetry Neuro and Cardio eval appreciated Swallow eval noted dc IV fluids PT eval carotid doppler-- negative Brain MRI does not show infarct likely due to BP meds BP low today Will dc Verapamil and observe-- spoke with Indexer no evidence of infection-- cultures negative renal function improved continue with Xarelto
--- NOTE | 2017-02-12 10:28 | PN ---
Progress Note (short form) - Note Progress Note: s: no cp sob palps dizzy o: Vital Signs Period Temp Pulse Resp BP Sys/Johnson Pulse Ox Last 24 Hr 97.6 F-98.4 F 68-112 16-18 88-154/53-102 96 nad jvd flat, neck supple ctab, nl effort rrr nl s1, s2 no mrg + bs soft nt nd ext without e/c/c no jaundice, diahporesis alert awake appropriate Current Medications Generic Name Dose Route Start Last Admin Trade Name Freq PRN Reason Stop Dose Admin Atorvastatin Calcium 10 mg 02/10/17 22:00 02/11/17 22:17 Lipitor - PO 10 mg HS VIVIANA Administration Memantine 28mg/ 1 each 02/10/17 10:00 02/12/17 09:57 Donepezil 10mg *Er* PO 1 each Capsule DAILY VIVIANA Administration Rivaroxaban 15 mg 02/11/17 10:00 02/12/17 09:57 Xarelto - PO 15 mg DAILY VIVIANA Administration Thiamine HCl 100 mg 02/11/17 12:30 02/12/17 09:57 Vitamin B1 - PO 100 mg DAILY VIVIANA Administration Laboratory Last Values WBC 6.6 K/mm3 (4.0-10.0) 02/10/17 05:35 RBC 4.66 M/mm3 (4.00-5.60) 02/10/17 05:35 Hgb 12.7 GM/dL (11.7-16.9) 02/10/17 05:35 Hct 37.6 % (35.4-49) 02/10/17 05:35 MCV 80.8 fl (80-96) 02/10/17 05:35 MCH 27.2 pg (25.7-33.7) 02/10/17 05:35 MCHC 33.7 g/dl (32.0-35.9) 02/10/17 05:35 RDW 13.3 % (11.9-15.9) 02/10/17 05:35 Plt Count 141 K/MM3 (134-434) 02/10/17 05:35 MPV 10.1 fl (7.5-11.1) 02/10/17 05:35 Neutrophils % 62.8 % (42.8-82.8) 02/09/17 18:15 Lymphocytes % 24.0 % (8-40) 02/09/17 18:15 Monocytes % 10.1 % (3.8-10.2) 02/09/17 18:15 Eosinophils % 2.2 % (0-4.5) 02/09/17 18:15 Basophils % 0.9 % (0-2.0) 02/09/17 18:15 INR 2.85 (0.82-1.09) H 02/09/17 18:15 PTT (Actin FS) 37.1 SECONDS (26.9-34.4) H 02/09/17 18:15 VBG pH 7.40 (7.32-7.42) 02/09/17 18:40 POC VBG pCO2 51.1 mmHg (38-52) 02/09/17 18:40 POC VBG pO2 27.0 mmHg (28-48) L 02/09/17 18:40 Mixed VBG HCO3 30.7 meq/L (19-25) H 02/09/17 18:40 Sodium 141 mmol/L (136-145) 02/11/17 05:35 Potassium 3.8 mmol/L (3.5-5.1) 02/11/17 05:35 Chloride 103 mmol/L (98-107) 02/11/17 05:35 Carbon Dioxide 31 mmol/L (21-32) 02/11/17 05:35 Anion Gap 7 (8-16) L 02/11/17 05:35 BUN 17 mg/dL (7-18) D 02/11/17 05:35 Creatinine 1.0 mg/dL (0.7-1.3) D 02/11/17 05:35 Creat Clearance w eGFR 46.00 (>60) 02/10/17 05:35 Random Glucose 111 mg/dL (74-106) H 02/11/17 05:35 Lactic Acid 1.5 mmol/L (0.4-2.0) 02/09/17 18:15 Calcium 8.5 mg/dL (8.5-10.1) 02/11/17 05:35 Total Bilirubin 0.9 mg/dL (0.2-1.0) D 02/10/17 05:35 AST 20 U/L (15-37) 02/10/17 05:35 ALT 24 U/L (12-78) 02/10/17 05:35 Alkaline Phosphatase 75 U/L (45-117) 02/10/17 05:35 Creatine Kinase 90 IU/L (39-308) 02/09/17 18:15 Troponin I < 0.02 ng/ml (0.00-0.05) 02/09/17 18:15 Total Protein 6.2 g/dl (6.4-8.2) L 02/10/17 05:35 Albumin 3.4 g/dl (3.4-5.0) 02/10/17 05:35 Triglycerides 78 mg/dL (35-160) 02/11/17 05:35 Cholesterol 115 mg/dL (50-200) 02/11/17 05:35 Total LDL Cholesterol 63 mg/dL (5-100) 02/11/17 05:35 HDL Cholesterol 46 mg/dL (40-60) 02/11/17 05:35 Vitamin B12 Cancelled 02/11/17 09:45 TSH 0.93 uIU/ml (0.358-3.74) 02/11/17 05:35 Urine Color Ltyellow 02/09/17 18:30 Urine Appearance Clear 02/09/17 18:30 Urine pH 5.0 (5.0-8.0) 02/09/17 18:30 Ur Specific [place] 1.010 (1.005-1.025) 02/09/17 18:30 Urine Protein Negative (NEGATIVE) 02/09/17 18:30 Urine Glucose (UA) 1+ (NEGATIVE) H 02/09/17 18:30 Urine Ketones Negative (NEGATIVE) 02/09/17 18:30 Urine Blood 1+ (NEGATIVE) H 02/09/17 18:30 Urine Nitrite Negative (NEGATIVE) 02/09/17 18:30 Urine Bilirubin Negative (NEGATIVE) 02/09/17 18:30 Urine Urobilinogen Negative E.U./dl (0.2-1.0) 02/09/17 18:30 Ur Leukocyte Esterase Negative (NEGATIVE) 02/09/17 18:30 Urine RBC 1 /hpf (0-3) 02/09/17 18:30 Urine WBC 2 /hpf (3-5) 02/09/17 18:30 RPR Titer Nonreactive (NONREACTIVE) 02/11/17 05:35 Blood Type O POSITIVE 02/09/17 18:15 Antibody Screen Negative 02/09/17 18:15 tele: afib,rate controlled CXR: wnl brain mri: negative for infarct head ct here: acute/subacute lt basal ganglia infarct carotid u/s: no sig stenosis Echo 11/2016: afib. nl lv size/fn ef 60-65%. Mild rv dilation, nl function. 1+ susan. 1+ ar/mr. cath [facility] 01/2017: LVEDP 15, RA 7 mPAP 20 . pRCA < 30% but with significant vasospasm noted (Relieved by ntg), d [id number]%, TO of OM1 (small - fills via LAD collaterals --> no intervention) 09/2016 stress echo: afib with aberrant conduction,--> pvc's, triplets in recovery. 0.5 mm inferior std in recovery. --> non-diagnostic. At rest. Mild inducible HK of basal inferior wall. RV dilation (preserved function) and severe pHTN with stress. Mod MR with stress. 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 basal ganglia infarct. AMS - no new cva per neuro. Per neuro ok to con't xarelto. - patient also with underlying dementia and presented with NEL. - possibly related to episodes of hypotension and today with sbp 90s with orthostatic changes so will dc verapamil for now and monitor bp response CAD - stable, no signs acs - Recent cath last month with ++ vasospasm, + cad but no intervenable disease - con't statin, xarelto. BP too low with orthostatic changes for nitrates, bb, ccb at this time so holding NEL/hypotension - likely 2/2 poor po intake. improving with ivf. afib -rate controlled but bp low with orthostatic changes so not tolerating even lower dose rate meds. Holding rate meds for now. Will need outpt cardio f/u to assess rate control/bp. -cont ac with xarelto -inducible phtn - no phtn at rest. normal right sided pressures on recent cath. ? whether vasospasm contributing vs. diastolic dysfunction - not contributing to current sx's. ongoing outpatient mgm't htn - as above hld - statin Monitor bp/hr for now, if stable then ok for dc later today with close outpt cardiology f/u.
--- NOTE | 2017-02-12 11:42 | DS ---
Physical Examination Vital Signs: Vital Signs Temperature 98.4 F 02/12/17 06:00 Pulse Rate 86 02/12/17 11:35 Respiratory Rate 16 02/12/17 11:35 Blood Pressure 96/61 02/12/17 11:35 O2 Sat by Pulse Oximetry (%) 99 02/12/17 09:00 Constitutional: Yes: No Distress, Calm Cardiovascular: Yes: Pulse Irregular Respiratory: Yes: CTA Bilaterally Gastrointestinal: Yes: Normal Bowel Sounds, Soft, Abdomen, Obese. No: Distention, Tenderness Edema: No Labs: CBC, BMP 02/10/17 05:35 02/11/17 05:35 Discharge Summary Reason For Visit: overmedication Current Active Problems Acute renal insufficiency (Acute) Afib (Acute) Confusion (Acute) Dementia (Acute) Generalized weakness (Acute) Hospital Course: patient was admitted for altered mental status, low blood pressure.CT head was initially read as acute basal ganglia infarct but MRI of the brain that was done afterwards did not show any infarcts. He was seen by a neurologist as well as seamer elastic band. Septic workup done and is negative. No source of infection. Blood pressure was noted to be low and his medications were discontinued. Lastly verapamil was also discontinued. Telemetry was uneventful Carotid Doppler normal Final diagnoses over medicated with blood pressure pills, depression Patient eating better Ambulating with physical therapy but needs walker, home PT as well as visiting nurse services. Spoke with family members Stable for discharge home Condition: Improved - Instructions Referrals: Daniel Son MD [Staff Physician] - Vinay Howard DO [Staff Physician] - Shaun Marie MD [Primary Care Provider] - Disposition: VNS/HOME HEALTH CARE - Home Medications Comprehensive Discharge Medication List: Ambulatory Orders Cholecalciferol (Vitamin D3) [Vitamin D3 -] 1,000 unit PO DAILY 07/04/16 Atorvastatin Ca [Lipitor] 10 mg PO HS 02/09/17 Memantine HCl/Donepezil HCl [Namzaric 28 mg-10 mg Capsule] 1 each PO DAILY 02/09 Rivaroxaban [Xarelto -] 15 mg PO DAILY #30 tablet 02/12/17 Thiamine HCl [Vitamin B1 -] 100 mg PO DAILY #30 tablet 02/12/17
[2017-02-12 11:52] VITALS: BP 96/61; PULSE 86
--- NOTE | 2017-02-12 13:14 | EKG ---
Test Reason : Blood Pressure : / mmHG Vent. Rate : 070 BPM Atrial Rate : 340 BPM P-R Int : 000 ms QRS Dur : 078 ms QT Int : 422 ms P-R-T Axes : 000 -01 094 degrees QTc Int : 455 ms ATRIAL FIBRILLATION ABNORMAL QRS-T ANGLE, CONSIDER PRIMARY T WAVE ABNORMALITY ABNORMAL ECG NO PREVIOUS ECGS AVAILABLE Confirmed by DEEPTI MUÑOZ MD ([id number]) on 02/12/2017 1:14:23 PM Referred By: Confirmed By:DEEPTI MUÑOZ MD
== END 2017-02-12 11:55 | disposition home health service (06) | DRG 917 ==
LOC: JER 15:51 → JERBED 20:52 → J4S 23:38
PROVIDERS: ADMIT Internal Medicine; ATTEND Internal Medicine
DX: T50.991A Poisoning by other drugs, medicaments and biological substances, accidental (unintentional), initial encounter (principal); G93.40 Encephalopathy, unspecified; I25.10 Atherosclerotic heart disease of native coronary artery without angina pectoris; I48.91 Unspecified atrial fibrillation; Z79.01 Long term (current) use of anticoagulants; F03.90 Unspecified dementia, unspecified severity, without behavioral disturbance, psychotic disturbance, mood disturbance, and anxiety; I10 Essential (primary) hypertension; J44.9 Chronic obstructive pulmonary disease, unspecified; D64.9 Anemia, unspecified; I95.9 Hypotension, unspecified; Z87.891 Personal history of nicotine dependence; I95.2 Hypotension due to drugs; F10.10 Alcohol abuse, uncomplicated; N28.9 Disorder of kidney and ureter, unspecified
CPT/HCPCS: 36415; 70450-TC; 70551-TC; 71010-TC; 80048; 80053; 80061; 81003; 81015; 82550; 82607; 82803; 83605; 83721; 84443; 84484; 85025; 85027; 85610; 85730; 86593; 86850; 86900; 86901; 87040; 87086; 90670; 93005; 93010; 93306-TC; 93880-TC; 97116-GP; 97161-GP; 99283-25

== ENCOUNTER 2017-05-25 16:02 | Observation (INO) | payer MEDICARE ==
--- NOTE | 2017-05-25 16:32 | PDOC ---
History of Present Illness - General Chief Complaint: Lethargy Stated Complaint: WEAKNESS Time Seen by Provider: 05/25/17 16:16 History Source: Patient, Family Exam Limitations: Clinical Condition, Dementia - History of Present Illness Initial Comments: 05/25/17 16:21 The patient is a 72M with a PMH of hypertension, dementia, coronary disease, atrial fibrillation on xarelto who presents to the ED with confusion and AMS. He is accompanied with his family who state that he has "not been himself" for 2 weeks. They state that he has been shaking and rolling his eyes in the back of his head. Past History - Past Medical History Allergies/Adverse Reactions: Allergies Allergy/AdvReac Type Severity Reaction Status Date / Time No Known Allergies Allergy Verified 05/25/17 16:17 Home Medications: Ambulatory Orders Cholecalciferol (Vitamin D3) [Vitamin D3 -] 1,000 unit PO DAILY 07/04/16 Memantine HCl/Donepezil HCl [Namzaric 28 mg-10 mg Capsule] 1 each PO DAILY 02/09 Rivaroxaban [Xarelto -] 20 mg PO DAILY 05/25/17 Cardiac Disorders: Yes (AFIB) Diabetes: Yes GI Disorders: Yes (HEMORROIDS;COLON POLYPS) HTN: Yes Hypercholesterolemia: Yes - Surgical History Orthopedic Surgery: Yes (R ANKLE SX) - Suicide/Smoking/Psychosocial Hx Smoking Status: No Smoking History: Former smoker Have you smoked in the past 12 months: No Number of Cigarettes Smoked Daily: 0 If you are a former smoker, when did you quit?: 10 YEARS AGO Hx Alcohol Use: No Drug/Substance Use Hx: No Substance Use Type: Alcohol Hx Substance Use Treatment: No (QUIT DRINKING 10 YEARS AGO) Review of Systems - Review of Systems Able to Perform ROS?: No (demented) *Physical Exam - Physical Exam General Appearance: Yes: Nourished, Appropriately Dressed. No: Apparent Distress, Disheveled HEENT: positive: Hearing Grossly Normal Respiratory/Chest: negative: Chest Tender, Lungs Clear (coarse lung sounds b/l) , Normal Breath Sounds Cardiovascular: positive: Regular Rhythm, Regular Rate, S1, S2. negative: Diastolic Murmur, Systolic Murmur Gastrointestinal/Abdominal: positive: Flat, Soft. negative: Tender, Guarding, Rebound, Tenderness Extremity: negative: Swelling, Calf Tenderness Integumentary: positive: Dry, Warm. negative: Clammy, Diaphoresis Neurologic: negative: Fully Oriented, Alert, Normal Mood/Affect Heart Score/ECG Review - ECG Impressions Comment:: 05/25/17 18:35 A-fib rate 80 QRS 70 QTC 447 ED Treatment Course - LABORATORY CBC & Chemistry Diagram: 05/25/17 16:23 05/25/17 16:23 Medical Decision Making - Medical Decision Making 05/25/17 18:28 The patient is a 72M who presented with AMS and shaking. Need to r/o seizure- like activity. Lactate 2.3. Spoke with Dr. Otoole, who accepts admission. *DC/Admit/Observation/Transfer Diagnosis at time of Disposition: Confusion Afib Qualifiers: Atrial fibrillation type: chronic Qualified Code(s): I48.2 - Chronic atrial fibrillation Dementia Qualifiers: Dementia type: unspecified type Dementia behavioral disturbance: with behavioral disturbance Qualified Code(s): F03.91 - Unspecified dementia with behavioral disturbance - Discharge Dispostion Condition at time of disposition: Stable Admit: Yes - Referrals Referrals: Josephine Otoole MD [Primary Care Provider] -
[2017-05-25] MEDS ORDERED: SODIUM CHLORIDE 0.9% 1000 ML INFUS.BAG IV ONE (16:55)
[2017-05-25 17:17] LABS: BASOPHIL 0.9 % (0-2.0); EOSINOPHIL 1.5 % (0-4.5); MCH 27.4 pg (25.7-33.7); MCHC 32.8 g/dl (32.0-35.9); MEAN CELL VOLUME 83.6 fl (80-96); MEAN PLT VOLUME 9.6 fl (7.5-11.1); PLATELET COUNT 224 K/MM3 (134-434); RDW 13.2 % (11.9-15.9); WHITE BLOOD COUNT 6.9 K/mm3 (4.0-10.0)
[2017-05-25 17:33] LABS: INR 1.88 (0.82-1.09); PROTHROMBIN TIME (PATIENT) 21.2 SEC (9.98-11.88)
[2017-05-25 17:35] LABS: ACTIVATED PTT 34.9 SECONDS (26.9-34.4)
[2017-05-25 17:42] LABS: VENOUS BLOOD GAS HCO3 26.8 meq/L (19-25); VENOUS PH 7.38 (7.32-7.42)
[2017-05-25 17:44] LABS: ALBUMIN 3.7 g/dl (3.4-5.0); ANION GAP 9 (8-16); BILIRUBIN,TOTAL 0.5 mg/dL (0.2-1.0); CO2 27 mmol/L (21-32); CREATININE 1.2 mg/dL (0.7-1.3); GLUCOSE,RANDOM 92 mg/dL (74-106); SGOT/AST 22 U/L (15-37); SGPT/ALT 34 U/L (12-78)
[2017-05-25 17:47] LABS: ALK PHOS 102 U/L (45-117); CPK 148 IU/L (39-308); TOT PROT 7.4 g/dl (6.4-8.2); TROPONIN I < 0.02 ng/ml (0.00-0.05)
[2017-05-25] MEDS ORDERED: PIPERACILLIN/TAZOB 3.375 GM/50 ML PRE-DOCKED IV ONE (18:23)
[2017-05-25] MEDS ORDERED: VANCOMYCIN 1,000 MG in DEXTROSE 5%-WATER - 250 ML IVPB ONE (18:23)
[2017-05-25] MEDS ORDERED: VANCOMYCIN 1 GRAM (PRE-DOCKED) 250 ML IVPB ONE (18:35)
[2017-05-25] MEDS ORDERED: PIPERACILLIN/TAZOB 3.375 GM 50 ML IVPB ONE (18:36)
[2017-05-25 19:15] LABS: URINE APPEARANCE CLEAR; URINE BILIRUBIN NEGATIVE (NEGATIVE); URINE BLOOD NEGATIVE (NEGATIVE); URINE COLOR STRAW; URINE GLUCOSE (UA) NEGATIVE (NEGATIVE); URINE KETONE NEGATIVE (NEGATIVE); URINE NITRITE NEGATIVE (NEGATIVE); URINE PROTEIN NEGATIVE (NEGATIVE); URINE UROBILINOGEN NEGATIVE mg/dL (0.2-1.0)
[2017-05-25] MEDS ORDERED: ACETAMINOPHEN 325 MG TABLET (FP) PO PRN (19:29)
[2017-05-25] MEDS: DEXTROSE 5%-0.45% SALINE 1,000 ML IV SCH (20:39)
[2017-05-25 20:57] VITALS: BMI 24.2
[2017-05-25 22:10] LABS: URINE LEUK ESTERASE Negative (NEGATIVE)
[2017-05-26 07:51] LABS: BASOPHIL 1.4 % (0-2.0); EOSINOPHIL 1.6 % (0-4.5); MCH 27.1 pg (25.7-33.7); MCHC 32.3 g/dl (32.0-35.9); MEAN PLT VOLUME 9.7 fl (7.5-11.1); NEUTROPHILS 54.7 % (42.8-82.8); PLATELET COUNT 200 K/MM3 (134-434); RDW 12.9 % (11.9-15.9); WHITE BLOOD COUNT 6.7 K/mm3 (4.0-10.0)
[2017-05-26 08:09] LABS: ALBUMIN 3.4 g/dl (3.4-5.0); ANION GAP 11 (8-16); CALCIUM 8.8 mg/dL (8.5-10.1); CO2 27 mmol/L (21-32); GLUCOSE,RANDOM 83 mg/dL (74-106)
[2017-05-26 08:15] LABS: ALK PHOS 81 U/L (45-117); BILIRUBIN,TOTAL 0.6 mg/dL (0.2-1.0); CREATININE 0.9 mg/dL (0.7-1.3); SGOT/AST 19 U/L (15-37); SGPT/ALT 27 U/L (12-78); TOT PROT 6.6 g/dl (6.4-8.2)
[2017-05-26] MEDS: RIVAROXABAN 20 MG TABLET PO SCH (09:40)
[2017-05-26] MEDS: CEFTRIAXONE 1 G/50 ML PREMIX 50 ML IVPB SCH (09:40)
[2017-05-26] MEDS: DEXTROSE 5%-0.45% SALINE 1,000 ML IV SCH (09:41)
[2017-05-26] MEDS ORDERED: PATIENT'S OWN MEDICATION (NON-FORMULARY) (Memantine Hcl/Donepezil Hcl [Namzaric 28 Mg-10 M PO SCH (10:00)
--- NOTE | 2017-05-26 11:47 | HP ---
Admitting History and Physical - Primary Care Physician PCP: Shaun Marie - Admission Chief Complaint: AMS History of Present Illness: ER HISTORY History of Present Illness Initial Comments: 05/25/17 16:21 The patient is a 72M with a PMH of hypertension, dementia, coronary disease, atrial fibrillation on xarelto who presents to the ED with confusion and AMS. He is accompanied with his family who state that he has "not been himself" for 2 weeks. They state that he has been shaking and rolling his eyes in the back of his head. 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) Cardiovascular: Yes: AFIB, CAD, HTN - Smoking History Smoking history: Former smoker Have you smoked in the past 12 months: No Aproximately how many cigarettes per day: 0 If you are a former smoker, when did you quit?: 10 YEARS AGO - Alcohol/Substance Use Hx Alcohol Use: No Home Medications - Allergies Allergies/Adverse Reactions: Allergies Allergy/AdvReac Type Severity Reaction Status Date / Time No Known Allergies Allergy Verified 05/25/17 16:17 - Home Medications Home Medications: Ambulatory Orders Cholecalciferol (Vitamin D3) [Vitamin D3 -] 1,000 unit PO DAILY 07/04/16 Memantine HCl/Donepezil HCl [Namzaric 28 mg-10 mg Capsule] 1 each PO DAILY 02/09 Rivaroxaban [Xarelto -] 20 mg PO DAILY 05/25/17 Review of Systems Unable to obtain ROS, reason: dementia Physical Examination Vital Signs: Vital Signs Temperature 98.1 F 05/26/17 10:00 Pulse Rate 83 05/26/17 10:00 Respiratory Rate 18 05/26/17 10:00 Blood Pressure 146/94 05/26/17 10:00 O2 Sat by Pulse Oximetry (%) 98 05/26/17 09:00 Constitutional: Yes: No Distress, Calm Cardiovascular: Yes: Pulse Irregular Respiratory: Yes: CTA Bilaterally Gastrointestinal: Yes: Normal Bowel Sounds, Soft. No: Abdomen, Obese, Distention, Tenderness Edema: No Neurological: Yes: Alert, Other (follows commands) Psychiatric: Yes: Alert Labs: CBC, BMP 05/26/17 07:25 05/26/17 07:25 Imaging - Results Chest X-ray: Image Reviewed (no infiltrates, congestion) Cat Scan: Report Reviewed (CT head-) EKG: Image Reviewed (Afib) Problem List - Problems (1) Afib Code(s): I48.91 - UNSPECIFIED ATRIAL FIBRILLATION Qualifiers: Atrial fibrillation type: chronic Qualified Code(s): I48.2 - Chronic atrial fibrillation; I48.2 - Chronic atrial fibrillation; I48.2 - Chronic atrial fibrillation; I48.2 - Chronic atrial fibrillation (2) Confusion Code(s): R41.0 - DISORIENTATION, UNSPECIFIED (3) Dementia Code(s): F03.90 - UNSPECIFIED DEMENTIA WITHOUT BEHAVIORAL DISTURBANCE Qualifiers: Dementia type: unspecified type Dementia behavioral disturbance: with behavioral disturbance Qualified Code(s): F03.91 - Unspecified dementia with behavioral disturbance; F03.91 - Unspecified dementia with behavioral disturbance; F03.91 - Unspecified dementia with behavioral disturbance; F10.97 - Alcohol use, unspecified with alcohol-induced persisting dementia; F10.97 - Alcohol use, unspecified with alcohol-induced persisting dementia; F10.97 - Alcohol use, unspecified with alcohol-induced persisting dementia (4) Abrasion Code(s): T14.8 - OTHER INJURY OF UNSPECIFIED BODY REGION * DO NOT USE * Assessment/Plan PLAN worsening dementia unsure of ifectious source-- empiric antibiotics started Neurology evaluation Cultures pending, if negative, will dc antibiotics PT eval iv fluids for another 24 hours DVT prophylaxis-- Heparin sc
[2017-05-26] MEDS: MEGESTROL ACETATE 400 MG/10 ML UNIT DOSE CUP PO SCH (12:28)
--- NOTE | 2017-05-26 15:25 | CON.NEURO ---
Consult - Past Medical History [employer] IN[employer]: Yes: Dementia, Other (tremor) Cardio/Vascular: Yes: AFIB, CAD, HTN - Alcohol/Substance Use Hx Alcohol Use: No - Smoking History Smoking history: Former smoker Have you smoked in the past 12 months: No Aproximately how many cigarettes per day: 0 If you are a former smoker, when did you quit?: 10 YEARS AGO Home Medications - Allergies Allergies/Adverse Reactions: Allergies Allergy/AdvReac Type Severity Reaction Status Date / Time No Known Allergies Allergy Verified 05/25/17 16:17 - Home Medications Home Medications: Ambulatory Orders Cholecalciferol (Vitamin D3) [Vitamin D3 -] 1,000 unit PO DAILY 07/04/16 Memantine HCl/Donepezil HCl [Namzaric 28 mg-10 mg Capsule] 1 each PO DAILY 02/09 Rivaroxaban [Xarelto -] 20 mg PO DAILY 05/25/17 Physical Exam-Neuro Vital Signs: Vital Signs Temperature 98.3 F 05/26/17 14:00 Pulse Rate 87 05/26/17 14:00 Respiratory Rate 20 05/26/17 14:00 Blood Pressure 160/71 05/26/17 14:00 O2 Sat by Pulse Oximetry (%) 98 05/26/17 09:00 Labs: INR, PTT INR 1.88 (0.82-1.09) H D 05/25/17 16:55 Assessment/Plan cc difficulty walking for few days HPI 72 year old male history of HTN, dementia, cad, atrial fibrillation and on xarelto came with confusion. He lives with niece and at home. He has been diagnose with mild dementia and he also have tremors.Family describes he has not been feeling good and was confused for two weeks. He has been having sahaking his head. Patient is on namzaric , xarelto Allergies/Adverse Reactions: Allergies Allergy/AdvReac Type Severity Reaction Status Date / Time No Known Allergies Allergy Verified 05/25/17 16:17 Home Medications: Cholecalciferol (Vitamin D3) [Vitamin D3 -] 1,000 unit PO DAILY 07/04/16 Memantine HCl/Donepezil HCl [Namzaric 28 mg-10 mg Capsule] 1 each PO DAILY 02/09 Rivaroxaban [Xarelto -] 20 mg PO DAILY 05/25/17 Cardiac Disorders: Yes (AFIB) Diabetes: Yes GI Disorders: Yes (HEMORROIDS;COLON POLYPS) HTN: Yes Hypercholesterolemia: Yes - Surgical History Orthopedic Surgery: Yes (R ANKLE SX) - Suicide/Smoking/Psychosocial Hx Smoking Status: No Smoking History: Former smoker Have you smoked in the past 12 months: No Number of Cigarettes Smoked Daily: 0 If you are a former smoker, when did you quit?: 10 YEARS AGO Hx Alcohol Use: No Drug/Substance Use Hx: No Substance Use Type: Alcohol Hx Substance Use Treatment: No (QUIT DRINKING 10 YEARS AGO) Review of Systems Reviewed in chart Neurological Examination Alert follow command , speech is slightly hypo phonic CN masked facies , eomi and no face asymmetry moving all extremity there is mild cogwheel rigidty identified there i smild resting tremor on right side ct head is normal Assessment- most likley he has Lewy Body disease ( given parkinson feature and dementia) which do not respond very well to sinemet. Given there is sudden worsening and he has history of atrial fibrillation , consideration of small lacunar stroke cant be ruled out Plan mri of brain - would do eeg though possibility of seizure is less likely - suggest to continue namzric -PT would do b12,folate tsh continue supportive treatment
--- NOTE | 2017-05-26 19:41 | EKG ---
Test Reason : Blood Pressure : / mmHG Vent. Rate : 080 BPM Atrial Rate : 122 BPM P-R Int : 000 ms QRS Dur : 070 ms QT Int : 388 ms P-R-T Axes : 000 031 114 degrees QTc Int : 447 ms ATRIAL FIBRILLATION WITH PREMATURE VENTRICULAR OR ABERRANTLY CONDUCTED COMPLEXES ABNORMAL QRS-T ANGLE, CONSIDER PRIMARY T WAVE ABNORMALITY ABNORMAL ECG WHEN COMPARED WITH ECG OF 09-FEB-2017 16:18, NO SIGNIFICANT CHANGE WAS FOUND REPEAT EKG IF CLINICALLY INDICATED BASELINE ARTIFACT Confirmed by GUY SIMS MD ([id number]) on 05/26/2017 7:41:42 PM Referred By: Confirmed By:GUY SIMS MD
[2017-05-27] MEDS: DEXTROSE 5%-0.45% SALINE 1,000 ML IV SCH ×2 (00:22→13:38)
--- NOTE | 2017-05-27 10:03 | PN ---
Progress Note, Physician Chief Complaint: examined today no distress he ate his food well-- was fed to him by - Current Medication List Current Medications: Active Medications Acetaminophen (Tylenol -) 650 mg PO Q4H PRN PRN Reason: FEVER OR PAIN Last Admin: 05/26/17 10:30 Dose: 650 mg CEFTRIAXONE 1 G/50 ML PREMIX (Ceftriaxone 1 Gm-D5w Bag) 50 mls @ 100 mls/hr IVPB DAILY [facility] Last Admin: 05/26/17 09:40 Dose: 100 mls/hr Dextrose/Sodium Chloride (D5-1/2ns -) 1,000 mls @ 83 mls/hr IV ASDIR [facility] Last Admin: 05/27/17 00:22 Dose: 83 mls/hr Megestrol Acetate (Megace Oral Suspension -) 400 mg PO DAILY [facility] Last Admin: 05/26/17 12:28 Dose: 400 mg Non-Formulary Medication (Memantine Hcl/Donepezil Hcl [Namzaric 28 Mg-10 Mg Capsule]) 1 each PO DAILY [facility] Rivaroxaban (Xarelto -) 20 mg PO DAILY [facility] Last Admin: 05/26/17 09:40 Dose: 20 mg - Objective Vital Signs: Vital Signs Temperature 98.4 F 05/27/17 06:00 Pulse Rate 86 05/27/17 06:00 Respiratory Rate 20 05/27/17 06:00 Blood Pressure 149/87 05/27/17 06:00 O2 Sat by Pulse Oximetry (%) 98 05/27/17 03:00 Constitutional: Yes: No Distress, Calm Cardiovascular: Yes: Regular Rate and Rhythm Respiratory: Yes: Diminished Gastrointestinal: Yes: Normal Bowel Sounds, Soft. No: Distention, Tenderness Extremities: Yes: Other (tremors+) Edema: No Labs: INR, PTT INR 1.88 (0.82-1.09) H D 05/25/17 16:55 Problem List - Problems (1) Afib Code(s): I48.91 - UNSPECIFIED ATRIAL FIBRILLATION Qualifiers: Atrial fibrillation type: chronic Qualified Code(s): I48.2 - Chronic atrial fibrillation; I48.2 - Chronic atrial fibrillation; I48.2 - Chronic atrial fibrillation; I48.2 - Chronic atrial fibrillation (2) Confusion Code(s): R41.0 - DISORIENTATION, UNSPECIFIED (3) Dementia Code(s): F03.90 - UNSPECIFIED DEMENTIA WITHOUT BEHAVIORAL DISTURBANCE Qualifiers: Dementia type: unspecified type Dementia behavioral disturbance: with behavioral disturbance Qualified Code(s): F03.91 - Unspecified dementia with behavioral disturbance; F03.91 - Unspecified dementia with behavioral disturbance; F03.91 - Unspecified dementia with behavioral disturbance; F10.97 - Alcohol use, unspecified with alcohol-induced persisting dementia; F10.97 - Alcohol use, unspecified with alcohol-induced persisting dementia; F10.97 - Alcohol use, unspecified with alcohol-induced persisting dementia (4) Abrasion Code(s): T14.8 - OTHER INJURY OF UNSPECIFIED BODY REGION * DO NOT USE * Assessment/Plan PLAN worsening dementia--Lewy body dementia per Neurology blood cultures negative urine cultures pending -- empiric antibiotics Neurology evaluation noted EEG ordered PT eval iv fluids for another 24 hours DVT prophylaxis-- Heparin sc
[2017-05-27] MEDS ORDERED: PT OWN MED DRAWER 7, Y5N ONE (10:13)
[2017-05-27] MEDS: RIVAROXABAN 20 MG TABLET PO SCH (11:03)
[2017-05-27] MEDS: MEGESTROL ACETATE 400 MG/10 ML UNIT DOSE CUP PO SCH (11:04)
[2017-05-27] MEDS: CEFTRIAXONE 1 G/50 ML PREMIX 50 ML IVPB SCH (13:38)
--- NOTE | 2017-05-28 08:31 | PN ---
Progress Note (short form) - Note Progress Note: cc difficulty walking for few days HPI 72 year old male history of HTN, dementia, cad, atrial fibrillation and on xarelto came with confusion. He lives with niece and at home. He has been diagnose with mild dementia and he also have tremors.Family describes he has not been feeling good and was confused for two weeks. He has been having sahaking his head. Patient is on namzaric , xarelto Neurological Examination Alert follow command , speech is slightly hypo phonic, oriented x 1, he says he is at [facility] and could not tell date CN masked facies , eomi and no face asymmetry moving all extremity there is mild cogwheel rigidty identified, there is resting tremors were seen ct head is normal mri of brain [place] Assessment- most likley he has Lewy Body disease ( given parkinson feature and dementia) which do not respond very well to sinemet. Given there is sudden worsening and he has history of atrial fibrillation , consideration of small lacunar stroke cant be ruled out Plan I suggest to addadd sinemet low dose as he has been very stiff and having tremors. I suggest we give a trial of sinemet , if developed side effect or do not improve than sinemet can be stopped - suporotive treatment and continue home meds ( namzaric)
[2017-05-28] MEDS: RIVAROXABAN 20 MG TABLET PO SCH (10:24)
[2017-05-28] MEDS: CEFTRIAXONE 1 G/50 ML PREMIX 50 ML IVPB SCH (10:24)
[2017-05-28] MEDS: MEGESTROL ACETATE 400 MG/10 ML UNIT DOSE CUP PO SCH (10:25)
--- NOTE | 2017-05-28 11:18 | DS ---
Physical Examination Vital Signs: Vital Signs Temperature 98.7 F 05/28/17 06:00 Pulse Rate 115 H 05/28/17 06:00 Respiratory Rate 20 05/28/17 06:00 Blood Pressure 118/68 05/28/17 06:00 O2 Sat by Pulse Oximetry (%) 98 05/28/17 03:00 Constitutional: Yes: No Distress, Calm Cardiovascular: Yes: Pulse Irregular Respiratory: Yes: CTA Bilaterally Gastrointestinal: Yes: Normal Bowel Sounds, Soft. No: Distention, Tenderness Edema: No Discharge Summary Reason For Visit: A-FIB CONFUSION DEMENTIA Current Active Problems Afib (Acute) Confusion (Acute) Dementia (Acute) Hospital Course: ADMITTED FOR ams, POOR PO INTAKE. CThead negative, seen by Neurology-- MRI- no acute changes Likely due to Lewy body dementia EEG done-- to be followed as outpt Blood and urine cultures negative, empiric antibiotics given Eating better with assistance Megace started here for appetite. stable for dc home Condition: Improved - Instructions Referrals: Shaun Marie MD [Staff Physician] - Disposition: HOME - Home Medications Comprehensive Discharge Medication List: Ambulatory Orders Cholecalciferol (Vitamin D3) [Vitamin D3 -] 1,000 unit PO DAILY 07/04/16 Memantine HCl/Donepezil HCl [Namzaric 28 mg-10 mg Capsule] 1 each PO DAILY 02/09 Rivaroxaban [Xarelto -] 20 mg PO DAILY 05/25/17 Carbidopa/Levodopa 25/100 [Sinemet 25/100 -] 1 each PO TID #90 tablet 05/28/17 Megestrol Acetate Oral Susp [Megace Oral Suspension -] 400 mg PO DAILY #7 syr
[2017-05-28 12:20] VITALS: TEMP 100
[2017-05-28] MEDS: DEXTROSE 5%-0.45% SALINE 1,000 ML IV SCH (13:55)
[2017-05-28] MEDS ORDERED: CARBIDOPA/LEVODOPA 25/100 TABLET (FP) PO SCH (14:00)
[2017-05-28 14:57] VITALS: BP 118/61; PULSE 97
== END 2017-05-28 17:28 | disposition home health service (06) ==
LOC: JER 16:02 → UNDOADMOB 18:29 → JERBED 18:29 → INTOOBSV 18:29 → J8W 20:29 → JERBED 20:29 → J8W 05-26 11:45 → JERBED 05-26 11:45
PROVIDERS: ADMIT Internal Medicine; ATTEND Internal Medicine
PROC: 3E03329 Introduction of Other Anti-infective into Peripheral Vein, Percutaneous Approach (ICD-10-PCS; principal; 2017-05-26)
PROC: 3E033GC Introduction of Other Therapeutic Substance into Peripheral Vein, Percutaneous Approach (ICD-10-PCS; 2017-05-26)
PROC: 3E0337Z Introduction of Electrolytic and Water Balance Substance into Peripheral Vein, Percutaneous Approach (ICD-10-PCS; 2017-05-26)
DX: R41.0 Disorientation, unspecified (principal); I48.2 Chronic atrial fibrillation; F03.91 Unspecified dementia, unspecified severity, with behavioral disturbance; I10 Essential (primary) hypertension; Z79.01 Long term (current) use of anticoagulants; E11.9 Type 2 diabetes mellitus without complications; Z87.891 Personal history of nicotine dependence; E78.5 Hyperlipidemia, unspecified; F10.97 Alcohol use, unspecified with alcohol-induced persisting dementia
CPT/HCPCS: 36415; 70450-TC; 70551-TC; 71010-TC; 80053; 81003; 82550; 82607; 82746; 82803; 83605; 84443; 84484; 85025; 85610; 85730; 86850; 86900; 86901; 87040; 87086; 93005; 93010; 95816; 96365; 96375; 97116-GP; 97162-GP; 99285-25; G0378

== ENCOUNTER 2017-05-29 18:15 | Inpatient (IN) | payer MEDICARE, OTHER ==
[2017-05-29 18:34] VITALS: BMI 24.2
[2017-05-29] MEDS ORDERED: NALOXONE HCL 0.4 MG/ML VIAL ONE (18:37)
[2017-05-29] MEDS ORDERED: SODIUM CHLORIDE 0.9% 1000 ML INFUS.BAG IV ONE ×2 (19:10→21:53)
[2017-05-29] MEDS ORDERED: LORazepam 2 MG/ML SDV VIAL ONE (19:11)
[2017-05-29 19:18] LABS: VENOUS PH 7.31 (7.32-7.42); VENOUS PO2 34.8 mmHg (28-48)
[2017-05-29 20:05] LABS: BASO % 0.4 % (0-2.0); EOS % 0.7 % (0-4.5); HEMATOCRIT 44.7 % (35.4-49); HEMOGLOBIN 14.5 GM/dL (11.7-16.9); LYMPH % 9.6 % (8-40); MCH 27.1 pg (25.7-33.7); MCHC 32.6 g/dl (32.0-35.9); MEAN CELL VOLUME 83.4 fl (80-96); MEAN PLT VOLUME 10.7 fl (7.5-11.1); MONO % 7.2 % (3.8-10.2); NEUT % 82.1 % (42.8-82.8); PLATELET COUNT 232 K/MM3 (134-434); RBC 5.36 M/mm3 (4.00-5.60); RDW 12.7 % (11.9-15.9); WHITE BLOOD COUNT 11.5 K/mm3 (4.0-10.0)
--- NOTE | 2017-05-29 20:19 | PDOC ---
History of Present Illness <Diane Colón - Last Filed: 05/29/17 21:24> - History of Present Illness Initial Comments: 05/29/17 22:12 72 yo male with h/o cad afib, dementia. recenlty admitted for episodes of AMS and questionable siezure activity, just dc yesterday, here today with c/o fall, AMS. here with son. pt had fall, was found on floor altered by son. fall witnessed just prior by his . per EMS pt was altered, small pupils so given narcan. en route was awake alert, then had second episode of breif altered consciousness, tremors, . is incontinent of stool at baseline. <Analilia Malin - Last Filed: 05/29/17 22:31> <Kan Gray - Last Filed: 05/29/17 22:37> - General Chief Complaint: Altered Mental Status Stated Complaint: AMS Time Seen by Provider: 05/29/17 18:20 Past History <Diane Colón - Last Filed: 05/29/17 21:24> - Past Medical History Cardiac Disorders: Yes (AFIB) CVA: Yes Diabetes: Yes GI Disorders: Yes (HEMORROIDS;COLON POLYPS) HTN: Yes Hypercholesterolemia: Yes - Surgical History Orthopedic Surgery: Yes (R ANKLE SX) - Suicide/Smoking/Psychosocial Hx Smoking Status: No Smoking History: Unknown if ever smoked Have you smoked in the past 12 months: No Number of Cigarettes Smoked Daily: 0 If you are a former smoker, when did you quit?: 10 YEARS AGO Information on smoking cessation initiated: No Hx Alcohol Use: No Drug/Substance Use Hx: No Substance Use Type: None Hx Substance Use Treatment: No (QUIT DRINKING 10 YEARS AGO) <Analilia Malin - Last Filed: 05/29/17 22:31> <Kan Gray - Last Filed: 05/29/17 22:37> - Past Medical History Allergies/Adverse Reactions: Allergies Allergy/AdvReac Type Severity Reaction Status Date / Time No Known Allergies Allergy Verified 05/25/17 16:17 Home Medications: Ambulatory Orders Cholecalciferol (Vitamin D3) [Vitamin D3 -] 1,000 unit PO DAILY 07/04/16 Memantine HCl/Donepezil HCl [Namzaric 28 mg-10 mg Capsule] 1 each PO DAILY 02/09 Rivaroxaban [Xarelto -] 20 mg PO DAILY 05/25/17 Carbidopa/Levodopa 25/100 [Sinemet 25/100 -] 1 each PO TID #90 tablet 05/28/17 Cefuroxime Axetil [Ceftin -] 500 mg PO Q12H #14 tablet 05/28/17 Megestrol Acetate Oral Susp [Megace Oral Suspension -] 400 mg PO DAILY #7 syr Review of Systems - Review of Systems Able to Perform ROS?: No Is the patient limited Indonesian proficient: Yes <EfrasantosAnalilia - Last Filed: 05/29/17 22:31> *Physical Exam - Vital Signs Last Vital Signs Temp Pulse Resp BP Pulse Ox 99.3 F 97 H 18 137/71 97 05/29/17 19:00 05/29/17 19:20 05/29/17 19:20 05/29/17 19:20 05/29/17 19:20 - Physical Exam Comments: 05/29/17 20:21 GENERAL: Awake, localizes but nonverbal. HEAD: No signs of trauma EYES: (+)Pupils are small but reactive. EOMI, sclera anicteric, conjunctiva clear ENT: (+)Dry mucus membranes. Auricles normal inspection, nares patent, oropharynx clear without exudates. NECK: Normal ROM, supple, no lymphadenopathy, JVD, or masses LUNGS: Breath sounds equal, clear to auscultation bilaterally. No wheezes, and no crackles HEART: (+)Tachy. Normal S1 and S2, no murmurs, rubs or gallops ABDOMEN: Soft, nontender, normoactive bowel sounds. No guarding, no rebound. No masses EXTREMITIES: (+)Resting tremors in both upper extremities. Normal range of motion, no edema. No clubbing or cyanosis. No cords, erythema, or tenderness. Warm and well perfused. No rigidity. NEUROLOGICAL:(+)Awake,localizes but nonverbal. Protects his face when his arm is dropped. Follows commands intermittently. SKIN: Warm, Dry, normal turgor, no rashes or lesions noted <Diane Colón - Last Filed: 05/29/17 21:24> - Vital Signs Last Vital Signs Temp Pulse Resp BP Pulse Ox 99.3 F 97 H 18 137/71 97 05/29/17 19:00 05/29/17 19:20 05/29/17 19:20 05/29/17 19:20 05/29/17 19:20 <Analilia Malin - Last Filed: 05/29/17 22:31> - Vital Signs Last Vital Signs Temp Pulse Resp BP Pulse Ox 99.3 F 110 H 17 130/109 100 05/29/17 19:00 05/29/17 21:51 05/29/17 21:51 05/29/17 21:51 05/29/17 21:51 <Kan Gray - Last Filed: 05/29/17 22:37> Heart Score/ECG Review #1 General ECG Interpretation: Normal Rate (121), Normal Intervals, No acute ischemic changes #2 General ECG Interpretation: Normal Rate (93), Normal Intervals, No acute ischemic changes 05/29/17 22:32 afib occasional PVC 05/29/17 22:32 - ECG Intrepretation Rhythm: Regularly Irregular <Analilia Malin - Last Filed: 05/29/17 22:31> ED Treatment Course - LABORATORY CBC & Chemistry Diagram: 05/29/17 19:03 05/29/17 19:03 - ADDITIONAL ORDERS Additional order review: Laboratory Results 05/29/17 19:10 VBG pH 7.31 L POC VBG pCO2 46.0 POC VBG pO2 34.8 D Mixed VBG HCO3 22.6 - RADIOLOGY Radiology Studies Ordered: 05/29/17 21:[address] was reviewed by Dr. Malin and over-read by Radiology. Impression 1. Nosignificant interval change from 05/25/[address] No acute intracranial hemmorhage, mass effect, midline shift or hydrocephalus. 2. Generalized, age-related volume loss with mild microvascular ischemic changes , similar to 05/25/[address] 3. Smaill fluid levle in the left sphenoid sinus has decreased since 2016. - Medications Given in the ED: ED Medications Discontinued Medications Generic Name Dose Route Start Last Admin Trade Name Freq PRN Reason Stop Dose Admin Lorazepam 2 mg 05/29/17 19:10 05/29/17 19:20 Ativan Injection - IVPUSH 05/29/17 19:11 2 mg ONCE ONE Administration Sodium Chloride 1,000 ml 05/29/17 19:10 05/29/17 19:22 Normal Saline - IV 05/29/17 19:11 1,000 ml ONCE ONE Administration <Diane Colón - Last Filed: 05/29/17 21:24> - LABORATORY CBC & Chemistry Diagram: 05/29/17 19:03 05/29/17 21:00 - ADDITIONAL ORDERS Additional order review: Laboratory Results 05/29/17 19:10 VBG pH 7.31 L POC VBG pCO2 46.0 POC VBG pO2 34.8 D Mixed VBG HCO3 22.6 - RADIOLOGY Radiology Studies Ordered: Category Date Time Status HEAD CT WITHOUT CONTRAST [CT] Stat CT Scan 05/29/17 18:46 Taken CXRPORT [CHEST X-RAY PORTABLE*] [RAD] Stat Radiology 05/29/17 18:49 Ordered - Medications Given in the ED: ED Medications Discontinued Medications Generic Name Dose Route Start Last Admin Trade Name Joseq PRN Reason Stop Dose Admin Lorazepam 2 mg 05/29/17 19:10 05/29/17 19:20 Ativan Injection - IVPUSH 05/29/17 19:11 2 mg ONCE ONE Administration Sodium Chloride 1,000 ml 05/29/17 19:10 05/29/17 19:22 Normal Saline - IV 05/29/17 19:11 1,000 ml ONCE ONE Administration <Analilia Malin - Last Filed: 05/29/17 22:31> - LABORATORY CBC & Chemistry Diagram: 05/29/17 19:03 05/29/17 21:00 - ADDITIONAL ORDERS Additional order review: Laboratory Results 05/29/17 05/29/17 05/29/17 21:00 19:40 19:40 VBG pH POC VBG pCO2 POC VBG pO2 Mixed VBG HCO3 Sodium 141 Potassium 4.6 Chloride 109 H Carbon Dioxide 24 Anion Gap 8 BUN 19 H D Creatinine 1.1 D Creat Clearance w eGFR > 60 Random Glucose 75 Lactic Acid Calcium 8.5 Total Bilirubin 0.5 AST 154 H D ALT 33 D Alkaline Phosphatase 76 Creatine Kinase 5709 H Troponin I 0.03 D Total Protein 6.6 Albumin 3.5 Urine Color Dkyellow Urine Appearance Cloudy Urine pH 5.0 D Urine Protein 2+ H Urine Glucose (UA) 1+ H Urine Ketones 1+ H Urine Blood 3+ H Urine Nitrite Negative Urine Bilirubin Negative Urine Urobilinogen Negative Urine RBC 137 Urine WBC 1 Granular Casts 2 Opiates Screen Negative Methadone Screen Negative Barbiturate Screen Negative Phencyclidine Screen Negative Ur Amphetamines Screen Negative MDMA (Ecstasy) Screen Negative Benzodiazepines Screen Negative Cocaine Screen Negative U Marijuana (THC) Screen Negative 05/29/17 05/29/17 05/29/17 19:10 19:03 19:03 VBG pH 7.31 L POC VBG pCO2 46.0 POC VBG pO2 34.8 D Mixed VBG HCO3 22.6 Sodium Cancelled Potassium Cancelled Chloride Cancelled Carbon Dioxide Cancelled Anion Gap Cancelled BUN Cancelled Creatinine Cancelled Creat Clearance w eGFR Cancelled Random Glucose Cancelled Lactic Acid Calcium Cancelled Total Bilirubin Cancelled AST Cancelled ALT Cancelled Alkaline Phosphatase Cancelled Creatine Kinase Cancelled Troponin I Cancelled Total Protein Cancelled Albumin Cancelled Urine Color Urine Appearance Urine pH Urine Protein Urine Glucose (UA) Urine Ketones Urine Blood Urine Nitrite Urine Bilirubin Urine Urobilinogen Urine RBC Urine WBC Granular Casts Opiates Screen Methadone Screen Barbiturate Screen Phencyclidine Screen Ur Amphetamines Screen MDMA (Ecstasy) Screen Benzodiazepines Screen Cocaine Screen U Marijuana (THC) Screen 05/29/17 19:00 VBG pH POC VBG pCO2 POC VBG pO2 Mixed VBG HCO3 Sodium Potassium Chloride Carbon Dioxide Anion Gap BUN Creatinine Creat Clearance w eGFR Random Glucose Lactic Acid 1.8 Calcium Total Bilirubin AST ALT Alkaline Phosphatase Creatine Kinase Troponin I Total Protein Albumin Urine Color Urine Appearance Urine pH Urine Protein Urine Glucose (UA) Urine Ketones Urine Blood Urine Nitrite Urine Bilirubin Urine Urobilinogen Urine RBC Urine WBC Granular Casts Opiates Screen Methadone Screen Barbiturate Screen Phencyclidine Screen Ur Amphetamines Screen MDMA (Ecstasy) Screen Benzodiazepines Screen Cocaine Screen U Marijuana (THC) Screen 05/29/17 19:03 RBC 5.36 MCV 83.4 MCHC 32.6 RDW 12.7 MPV 10.7 D Neutrophils % 82.1 D Lymphocytes % 9.6 D Monocytes % 7.2 Eosinophils % 0.7 Basophils % 0.4 - RADIOLOGY Radiograph Interpretation: 05/29/17 22:33 Exam: Chest [id number] AP portable view Indication: Altered mental status. Comparison: 05/25/2017 chest x-ray. Findings: There is shallow inspiration with low lung volumes, limiting evaluation of the lung bases. No definite airspace consolidation, pulmonary vascular congestion or pleural effusion. No definable pneumothorax. Stable size of the cardiomediastinal silhouette. Descending thoracic aorta is uncoiled. There is calcific atherosclerosis along the aortic arch. There is acromioclavicular arthropathy and degenerative changes in the visualized spine. Impression: Shallow inspiration with low lung volumes, somewhat limiting evaluation of lung bases. No definite airspace consolidation or pleural effusion. Reported By: Kaiser Tam MD - Medications Given in the ED: ED Medications Discontinued Medications Generic Name Dose Route Start Last Admin Trade Name Shavon PRN Reason Stop Dose Admin Lorazepam 2 mg 05/29/17 19:10 05/29/17 19:20 Ativan Injection - IVPUSH 05/29/17 19:11 2 mg ONCE ONE Administration Sodium Chloride 1,000 ml 05/29/17 19:10 05/29/17 19:22 Normal Saline - IV 05/29/17 19:11 1,000 ml ONCE ONE Administration Sodium Chloride 1,000 ml 05/29/17 21:53 05/29/17 22:00 Normal Saline - IV 05/29/17 21:54 1,000 ml ONCE ONE Administration <Kan Gray - Last Filed: 05/29/17 22:37> Medical Decision Making - Medical Decision Making 05/29/17 20:20 72-year-old male, with a pmhx of dementia, afib, cad (on xaralto). Pt was recently admitted for 2 weeks of progressive AMS and decrease PO and multiple episodes of eyes rolling back and shaking. He was admitted by Neuro and discharged yesterday evaluated for PE which was normal and had a head CT and MRI which showed no acute changes. It was included that his symptoms may likely be due to lewy body dementia. Today he was at home with his and son. Pts witnessed the pt fall on the floor. The pts son came to the room and found him on the floor and was confused. EMS was called and when they arrived the pt was on the floor. Narcan was given because the pt was altered. Shortly after the pt awake and talking. Pt was ano x3 per ems. Chart review and family agree that pt had very similar symptoms 3 days prior. <Diane Colón - Last Filed: 05/29/17 21:24> - Medical Decision Making 05/29/17 20:15 72 yo male with h/o cad afib, dementia. recenlty admitted for episodes of AMS and questionable siezure activity, just dc yesterday, here today with c/o fall, AMS. here with son. pt had fall, was found on floor altered by son. fall witnessed just prior by his . per EMS pt was altered, small pupils so given narcan. en route was awake alert, then had second episode of breif altered consciousness, tremors, . is incontinent of stool at baseline. on our exam pt is awake, nonverbal, eyes rolling back in head, interimttently. localizes to voice and command. not speaking. lung clear bilat. heart rrr no mrg. abd sof dao nd. ext wwp no edema. nuero. awake , nonberbal. localizes. resting tremor bilat upper ext. no rigidity noted. no clonus. skin warm and dry. differential: sepsis, ich from fall, seizure seems most likley, electrolyte abnormality, plan ct head. labs septic workup l. ekg will d/w dr jiménez ( [facility] ) who evaluated pt. d/w dr. atkins covering nuerology, recommend starting keppra, labs ct head. jesus see in hospital. 05/29/17 22:13 pt with mild rhabdomylolysis cpk >5000. given second liter fluid, cxr normal. ct head unchanges. pg dr. garcia. 05/29/17 22:22 d/w dr marie, will admit for AMS, progressive decline. may require placement per family. noted to be in rhabdo, hydrated with normal saline 2 units. <Analilia Malin - Last Filed: 05/29/17 22:31> - Medical Decision Making 05/29/17 22:17 Note: Patient was admitted to neuro and evaluated for seizures not PE. Page sent to Dr. Josephine Aden at 10:15 pm. Answering service advised Dr. Marie is delivery consultant and will return the page. Page returned by Dr. Marie at 10:20 pm. <Kan Gray - Last Filed: 05/29/17 22:37> *DC/Admit/Observation/Transfer - Attestations Scribe Attestion: 05/29/17 20:26 Documentation prepared by Diane Colón, acting as medical research tech for Analilia Malin MD. <Diane Colón - Last Filed: 05/29/17 21:24> - Discharge Dispostion Admit: Yes <Analilia Malin - Last Filed: 05/29/17 22:31> - Attestations Scribe Attestion: 05/29/17 22:37 Documentation prepared by Kan Gray, acting as medical research tech for Analilia Malin MD. <Kan Gray - Last Filed: 05/29/17 22:37> Diagnosis at time of Disposition: Altered mental state, Rhabdomyolysis
[2017-05-29 20:48] LABS: COCAINE, UR NEGATIVE ng/ml (CUTOFF=300); METHADONE, UR NEGATIVE ng/ml (CUTOFF=300); OPIATES, URI NEGATIVE ng/ml (CUTOFF=300); PHENCYCLIDINE,URINE NEGATIVE ng/ml (CUTOFF=25); URINE AMPHETAMINES NEGATIVE ng/ml (CUTOFF=500); URINE BARBITURATES NEGATIVE ng/ml (CUTOFF=200); URINE BENZODIAZEPINES NEGATIVE ng/ml (CUTOFF=200)
[2017-05-29 20:52] LABS: URINE APPEARANCE CLOUDY; URINE BILIRUBIN NEGATIVE (NEGATIVE); URINE BLOOD 3+ (NEGATIVE); URINE COLOR DKYELLOW; URINE GLUCOSE (UA) 1+ (NEGATIVE); URINE KETONE 1+ (NEGATIVE); URINE NITRITE NEGATIVE (NEGATIVE); URINE UROBILINOGEN NEGATIVE mg/dL (0.2-1.0)
[2017-05-29 20:56] LABS: URINE PROTEIN 2+ (NEGATIVE)
[2017-05-29 20:58] LABS: GRANULAR CASTS 2 /lpf; URINE RBC 137 /hpf (0-3); URINE WBC 1 /hpf (3-5)
[2017-05-29 21:53] LABS: ALBUMIN 3.5 g/dl (3.4-5.0); ANION GAP 8 (8-16); BILIRUBIN,TOTAL 0.5 mg/dL (0.2-1.0); BLOOD UREA NITROGEN 19 mg/dL (7-18); CALCIUM 8.5 mg/dL (8.5-10.1); CHLORIDE 109 mmol/L (98-107); CO2 24 mmol/L (21-32); CREATININE 1.1 mg/dL (0.7-1.3); GLUCOSE,RANDOM 75 mg/dL (74-106); POTASSIUM 4.6 mmol/L (3.5-5.1); SGOT/AST 154 U/L (15-37); SGPT/ALT 33 U/L (12-78); SODIUM 141 mmol/L (136-145); TOT PROT 6.6 g/dl (6.4-8.2)
[2017-05-29 22:05] LABS: ALK PHOS 76 U/L (45-117)
[2017-05-29 22:51] LABS: URINE LEUK ESTERASE Negative (NEGATIVE)
--- NOTE | 2017-05-30 09:37 | EKG ---
Test Reason : Blood Pressure : / mmHG Vent. Rate : 093 BPM Atrial Rate : 100 BPM P-R Int : 000 ms QRS Dur : 070 ms QT Int : 400 ms P-R-T Axes : 000 021 091 degrees QTc Int : 497 ms ATRIAL FIBRILLATION WITH PREMATURE VENTRICULAR OR ABERRANTLY CONDUCTED COMPLEXES ABNORMAL QRS-T ANGLE, CONSIDER PRIMARY T WAVE ABNORMALITY ABNORMAL ECG WHEN COMPARED WITH ECG OF 25-MAY-2017 16:14, NO SIGNIFICANT CHANGE WAS FOUND Confirmed by MERLENE MCGOWAN MD ([id number]) on 05/30/2017 9:37:13 AM Referred By: Confirmed By:MERLENE MCGOWAN MD
[2017-05-30] MEDS ORDERED: ACETAMINOPHEN 325 MG TABLET (FP) PO PRN (09:57)
[2017-05-30] MEDS: RIVAROXABAN 20 MG TABLET PO SCH (10:00)
[2017-05-30] MEDS ORDERED: PATIENT'S OWN MEDICATION (NON-FORMULARY) (Memantine Hcl/Donepezil Hcl [Namzaric 28 Mg-10 M PO SCH (10:00)
[2017-05-30] MEDS: CHOLECALCIFEROL (VITAMIN D3) 1,000 UNIT TABLET (FP) PO SCH (10:00)
[2017-05-30] MEDS: MEGESTROL ACETATE 400 MG/10 ML UNIT DOSE CUP PO SCH (10:00)
[2017-05-30] MEDS: D5-1/2NS+20 MEQ KCL - 1,000 ML IV SCH (10:30)
--- NOTE | 2017-05-30 12:32 | CON.NEURO ---
Consult - History of Present Illness History of Present Illness: 72 yo male with h/o cad afib, dementia, parkinsons recently admitted for episodes of AMS and questionable seizure activity, just dc 05/28/17, here with c/o fall, AMS. pt had fall, was found on floor altered by son. fall witnessed just prior by his . per EMS pt was altered, en route was awake alert, then had second episode of brief altered consciousness , tremors, incontinent of stool at baseline. ? 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) Cardio/Vascular: Yes: AFIB, CAD, HTN - Alcohol/Substance Use Hx Alcohol Use: No - Smoking History Smoking history: Unknown if ever smoked Have you smoked in the past 12 months: No Aproximately how many cigarettes per day: 0 If you are a former smoker, when did you quit?: 10 YEARS AGO Home Medications - Allergies Allergies/Adverse Reactions: Allergies Allergy/AdvReac Type Severity Reaction Status Date / Time No Known Allergies Allergy Verified 05/25/17 16:17 - Home Medications Home Medications: Ambulatory Orders Cholecalciferol (Vitamin D3) [Vitamin D3 -] 1,000 unit PO DAILY 07/04/16 Memantine HCl/Donepezil HCl [Namzaric 28 mg-10 mg Capsule] 1 each PO DAILY 02/09 Rivaroxaban [Xarelto -] 20 mg PO DAILY 05/25/17 Carbidopa/Levodopa 25/100 [Sinemet 25/100 -] 1 each PO TID #90 tablet 05/28/17 Cefuroxime Axetil [Ceftin -] 500 mg PO Q12H #14 tablet 05/28/17 Megestrol Acetate Oral Susp [Megace Oral Suspension -] 400 mg PO DAILY #7 syr Physical Exam-Neuro Vital Signs: Vital Signs Temperature 97.8 F 05/30/17 10:00 Pulse Rate 77 05/30/17 10:00 Respiratory Rate 22 05/30/17 10:00 Blood Pressure 122/72 05/30/17 10:00 O2 Sat by Pulse Oximetry (%) 100 05/30/17 02:31 Constitutional: Yes: Calm Neck: Yes: Decreased ROM - Neuro Exam Level Of Consciousness: Yes: Stuporous (somnolent, eyes forced closed, dyskinesias, + cogwhelling and tremor, not follwoing commands, non verbal, plantars dwn ) Imaging - Results Cat Scan: Image Reviewed Assessment/Plan 72 yo male with h/o cad afib, dementia, parkinsons recently admitted for episodes of AMS and questionable seizure activity, just dc 05/28/17, here with c/o fall, AMS. pt had fall, was found on floor altered by son. pt unable to elaborate further HX , no family bedside suspect primary Parkinson vs Parkinson plus sx (Lewy Body, SUHAIL GARYER, ), neither of which typically are associated with seizures syncope can be casues by autonomic instability by above HX of AFIb on AC hold off on AED for now , obtain EEG can continue sinemet, may consider adjusting SINEMET though LBD may get worse with higher doses to be decided by primary neuro ( Dr garcia ?) will likely need placement will speak to family HD ct - no acute changes Dr Howard
--- NOTE | 2017-05-30 13:00 | HP ---
Admitting History and Physical - Primary Care Physician PCP: Shaun Marie - Admission History of Present Illness: 72 yo male with h/o cad, afib, dementia. recently admitted for episodes of AMS and questionable siezure activity, just dc yesterday, here today with c/o fall, AMS. here with son. pt had fall, was found on floor altered by son. fall witnessed just prior by his . per EMS pt was altered, small pupils so given narcan. en route was awake alert, then had second episode of breif altered consciousness, tremors ct head -ve ekg- afib pt admitted for monitoring chart reviewed. case was discussed with er physician last night also also started on fluids for elevated ck pt seen/ examined in tele today comfortable sleeping . no distress. 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) Cardiovascular: Yes: AFIB, CAD, HTN - Smoking History Smoking history: Unknown if ever smoked Have you smoked in the past 12 months: No Aproximately how many cigarettes per day: 0 If you are a former smoker, when did you quit?: 10 YEARS AGO - Alcohol/Substance Use Hx Alcohol Use: No Home Medications - Allergies Allergies/Adverse Reactions: Allergies Allergy/AdvReac Type Severity Reaction Status Date / Time No Known Allergies Allergy Verified 05/25/17 16:17 - Home Medications Home Medications: Ambulatory Orders Cholecalciferol (Vitamin D3) [Vitamin D3 -] 1,000 unit PO DAILY 07/04/16 Memantine HCl/Donepezil HCl [Namzaric 28 mg-10 mg Capsule] 1 each PO DAILY 02/09 Rivaroxaban [Xarelto -] 20 mg PO DAILY 05/25/17 Carbidopa/Levodopa 25/100 [Sinemet 25/100 -] 1 each PO TID #90 tablet 05/28/17 Cefuroxime Axetil [Ceftin -] 500 mg PO Q12H #14 tablet 05/28/17 Megestrol Acetate Oral Susp [Megace Oral Suspension -] 400 mg PO DAILY #7 syr Review of Systems Unable to obtain ROS, reason: clinicla condition Physical Examination Vital Signs: Vital Signs Temperature 97.8 F 05/30/17 10:00 Pulse Rate 77 05/30/17 10:00 Respiratory Rate 22 05/30/17 10:00 Blood Pressure 122/72 05/30/17 10:00 O2 Sat by Pulse Oximetry (%) 100 05/30/17 02:31 Constitutional: Yes: No Distress, Calm Eyes: Yes: Conjunctiva Clear Neck: Yes: Supple Cardiovascular: Yes: Pulse Irregular Respiratory: Yes: CTA Bilaterally Gastrointestinal: Yes: Normal Bowel Sounds, Soft Edema: No Neurological: Yes: Other (non focal) Imaging - Results Chest X-ray: Report Reviewed Cat Scan: Report Reviewed EKG: Report Reviewed Problem List - Problems (1) Rhabdomyolysis Code(s): M62.82 - RHABDOMYOLYSIS (2) Afib Code(s): I48.91 - UNSPECIFIED ATRIAL FIBRILLATION Qualifiers: Atrial fibrillation type: chronic Qualified Code(s): I48.2 - Chronic atrial fibrillation; I48.2 - Chronic atrial fibrillation; I48.2 - Chronic atrial fibrillation; I48.2 - Chronic atrial fibrillation (3) Confusion Code(s): R41.0 - DISORIENTATION, UNSPECIFIED (4) Dementia Code(s): F03.90 - UNSPECIFIED DEMENTIA WITHOUT BEHAVIORAL DISTURBANCE Qualifiers: Dementia type: unspecified type Dementia behavioral disturbance: with behavioral disturbance Qualified Code(s): F03.91 - Unspecified dementia with behavioral disturbance; F03.91 - Unspecified dementia with behavioral disturbance; F03.91 - Unspecified dementia with behavioral disturbance; F10.97 - Alcohol use, unspecified with alcohol-induced persisting dementia; F10.97 - Alcohol use, unspecified with alcohol-induced persisting dementia; F10.97 - Alcohol use, unspecified with alcohol-induced persisting dementia (5) Hematuria Code(s): R31.9 - HEMATURIA, UNSPECIFIED Assessment/Plan Likely advance dementia fluids f/u labs repeat u/a neurology to follow fall precautions will need str vs placement will talk to family.' will follow discussed with nursing staff also.
[2017-05-30] MEDS: CARBIDOPA/LEVODOPA 25/100 TABLET (FP) PO SCH ×2 (14:00→21:41)
[2017-05-31] MEDS: D5-1/2NS+20 MEQ KCL - 1,000 ML IV SCH ×3 (06:43→22:10)
[2017-05-31] MEDS: CARBIDOPA/LEVODOPA 25/100 TABLET (FP) PO SCH ×3 (06:43→22:12)
[2017-05-31 07:33] LABS: BASO % 0.5 % (0-2.0); EOS % 1.7 % (0-4.5); HEMATOCRIT 41.6 % (35.4-49); HEMOGLOBIN 13.8 GM/dL (11.7-16.9); LYMPH % 10.5 % (8-40); MCH 27.7 pg (25.7-33.7); MCHC 33.3 g/dl (32.0-35.9); MEAN CELL VOLUME 83.1 fl (80-96); MEAN PLT VOLUME 9.7 fl (7.5-11.1); MONO % 6.8 % (3.8-10.2); NEUT % 80.5 % (42.8-82.8); PLATELET COUNT 193 K/MM3 (134-434); RBC 5.01 M/mm3 (4.00-5.60); WHITE BLOOD COUNT 10.6 K/mm3 (4.0-10.0)
[2017-05-31 08:26] LABS: ALBUMIN 3.2 g/dl (3.4-5.0); ANION GAP 9 (8-16); BILIRUBIN,TOTAL 0.6 mg/dL (0.2-1.0); BLOOD UREA NITROGEN 9 mg/dL (7-18); CALCIUM 8.4 mg/dL (8.5-10.1); CHLORIDE 108 mmol/L (98-107); CO2 25 mmol/L (21-32); CREATININE 0.8 mg/dL (0.7-1.3); GLUCOSE,RANDOM 78 mg/dL (74-106); POTASSIUM 4.1 mmol/L (3.5-5.1); SGOT/AST 195 U/L (15-37); SGPT/ALT 23 U/L (12-78); SODIUM 142 mmol/L (136-145); TOT PROT 6.6 g/dl (6.4-8.2)
[2017-05-31 08:27] LABS: ALK PHOS 72 U/L (45-117)
[2017-05-31 09:20] LABS: URINE APPEARANCE CLEAR; URINE BILIRUBIN NEGATIVE (NEGATIVE); URINE BLOOD 1+ (NEGATIVE); URINE COLOR STRAW; URINE GLUCOSE (UA) 1+ (NEGATIVE); URINE KETONE TRACE (NEGATIVE); URINE NITRITE NEGATIVE (NEGATIVE); URINE PROTEIN NEGATIVE (NEGATIVE); URINE UROBILINOGEN NEGATIVE mg/dL (0.2-1.0)
[2017-05-31] MEDS ORDERED: PT OWN MED DRAWER 7, Y5N ONE (10:15)
[2017-05-31] MEDS: MEGESTROL ACETATE 400 MG/10 ML UNIT DOSE CUP PO SCH (10:21)
[2017-05-31] MEDS: CHOLECALCIFEROL (VITAMIN D3) 1,000 UNIT TABLET (FP) PO SCH (10:21)
[2017-05-31] MEDS: RIVAROXABAN 20 MG TABLET PO SCH (10:21)
[2017-05-31 11:16] LABS: URINE MUCUS MODERATE; URINE RBC 1 /hpf (0-3); URINE WBC 1 /hpf (3-5)
--- NOTE | 2017-05-31 11:46 | PN ---
Progress Note (short form) - Note Progress Note: 72 yo male with h/o cad afib, dementia, parkinsons recently admitted for episodes of AMS and questionable seizure activity, just dc 05/28/17, here with c/o fall, AMS. pt had fall, was found on floor altered by son. fall witnessed just prior by his . per EMS pt was altered, en route was awake alert, then had second episode of brief altered consciousness , tremors, incontinent of stool at baseline. ? 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, Other (tremor) Cardio/Vascular: Yes: AFIB, CAD, HTN - Alcohol/Substance Use Hx Alcohol Use: No - Smoking History Smoking history: Unknown if ever smoked Have you smoked in the past 12 months: No Aproximately how many cigarettes per day: 0 If you are a former smoker, when did you quit?: 10 YEARS AGO Home Medications - Allergies Allergies/Adverse Reactions: Allergies Allergy/AdvReac Type Severity Reaction Status Date / Time No Known Allergies Allergy Verified 05/25/17 16:17 - Home Medications Home Medications: Ambulatory Orders Cholecalciferol (Vitamin D3) [Vitamin D3 -] 1,000 unit PO DAILY 07/04/16 Memantine HCl/Donepezil HCl [Namzaric 28 mg-10 mg Capsule] 1 each PO DAILY 02/09 Rivaroxaban [Xarelto -] 20 mg PO DAILY 05/25/17 Carbidopa/Levodopa 25/100 [Sinemet 25/100 -] 1 each PO TID #90 tablet 05/28/17 Cefuroxime Axetil [Ceftin -] 500 mg PO Q12H #14 tablet 05/28/17 Megestrol Acetate Oral Susp [Megace Oral Suspension -] 400 mg PO DAILY #7 syr Physical Exam-Neuro Vital Signs: Vital Signs Temperature 98.4 F 05/31/17 06:00 Pulse Rate 98 H 05/31/17 06:00 Respiratory Rate 20 05/31/17 06:00 Blood Pressure 106/66 05/31/17 06:00 O2 Sat by Pulse Oximetry (%) 100 05/30/17 21:00 Constitutional: Yes: Calm Neck: Yes: Decreased ROM - Neuro Exam Level Of Consciousness: Yes: Stuporous (somnolent, eyes forced closed, dyskinesias, + cogwhelling and tremor, not follwoing commands, non verbal, plantars dwn ); this AM, more awake and attentive Imaging - Results Cat Scan: Image Reviewed Assessment/Plan 72 yo male with h/o cad afib, dementia, parkinsons recently admitted for episodes of AMS and questionable seizure activity, just dc 05/28/17, here with c/o fall, AMS. pt had fall, was found on floor altered by son. pt unable to elaborate further HX , no family bedside suspect primary Parkinson vs Parkinson plus sx (Lewy Body, SUHAIL B[place], ), neither of which typically are associated with seizures syncope can be cause by autonomic instability by above HX of AFIb on AC hold off on AED for now , obtain EEG can continue sinemet, will likely need placement Dr Howard
[2017-05-31 14:18] LABS: URINE LEUK ESTERASE Negative (NEGATIVE)
--- NOTE | 2017-05-31 15:21 | PN ---
Progress Note (short form) - Note Progress Note: pt seen/ examined awake.comfortable dont remember me denies pain. Vital Signs Temp 98.2 F 05/31/17 14:10 Pulse 93 H 05/31/17 14:10 Resp 20 05/31/17 14:10 BP 115/77 05/31/17 14:10 Pulse Ox 100 05/30/17 21:00 Intake & Output 05/30/17 05/31/17 05/31/17 23:59 11:59 23:59 Intake Total 900 Output Total 400 Balance 900 -400 Intake: IV 900 D5-1/2Ns+20 Meq KCl - 1, 900 000 ml @ 83 mls/hr IV ASDIR [facility] Rx#:[id number] Output: Urine 400 Straight Cath 400 Other: Voiding Method Incontinent External Catheter # Unmeasured Voids Straight Cath 3 Active Medications Acetaminophen (Tylenol -) 650 mg PO Q4H PRN PRN Reason: FEVER OR PAIN Carbidopa/Levodopa (Sinemet 25/100 -) 1 each PO TID [facility] Last Admin: 05/31/17 14:10 Dose: 1 each Cholecalciferol (Vitamin D3 -) 1,000 unit PO DAILY [facility] Last Admin: 05/31/17 10:21 Dose: 1,000 unit Potassium Chloride/Dextrose/Sod Cl (D5-1/2ns+20 Meq Kcl -) 1,000 mls @ 83 mls/ hr IV ASDIR [facility] Last Admin: 05/31/17 10:09 Dose: Not Given Megestrol Acetate (Megace Oral Suspension -) 400 mg PO DAILY [facility] Last Admin: 05/31/17 10:21 Dose: 400 mg Non-Formulary Medication (Memantine Hcl/Donepezil Hcl [Namzaric 28 Mg-10 Mg Capsule]) 1 each PO DAILY [facility] Rivaroxaban (Xarelto -) 20 mg PO DAILY [facility] Last Admin: 05/31/17 10:21 Dose: 20 mg CBC, BMP 05/31/17 05:20 05/31/17 05:20 Physical Examination Constitutional: Yes: No Distress, Calm Eyes: Yes: Conjunctiva Clear Neck: Yes: Supple Cardiovascular: Yes: Pulse Irregular Respiratory: Yes: Clear to auscultation Gastrointestinal: Yes: Normal Bowel Sounds, Soft/ non tender Edema: No Neurological: Yes: Other (non focal) Imaging - Results Chest X-ray: Report Reviewed Cat Scan: Report Reviewed EKG: Report Reviewed Assessment/Plan advance dementia fluids repeat u/a -ve neurology f/u noted fall precautions will need str vs placement will follow Problem List - Problems (1) Rhabdomyolysis Code(s): M62.82 - RHABDOMYOLYSIS (2) Afib Code(s): I48.91 - UNSPECIFIED ATRIAL FIBRILLATION Qualifiers: Atrial fibrillation type: chronic Qualified Code(s): I48.2 - Chronic atrial fibrillation; I48.2 - Chronic atrial fibrillation; I48.2 - Chronic atrial fibrillation; I48.2 - Chronic atrial fibrillation (3) Confusion Code(s): R41.0 - DISORIENTATION, UNSPECIFIED (4) Dementia Code(s): F03.90 - UNSPECIFIED DEMENTIA WITHOUT BEHAVIORAL DISTURBANCE Qualifiers: Dementia type: unspecified type Dementia behavioral disturbance: with behavioral disturbance Qualified Code(s): F03.91 - Unspecified dementia with behavioral disturbance; F03.91 - Unspecified dementia with behavioral disturbance; F03.91 - Unspecified dementia with behavioral disturbance; F10.97 - Alcohol use, unspecified with alcohol-induced persisting dementia; F10.97 - Alcohol use, unspecified with alcohol-induced persisting dementia; F10.97 - Alcohol use, unspecified with alcohol-induced persisting dementia (5) Hematuria Code(s): R31.9 - HEMATURIA, UNSPECIFIED
[2017-06-01] MEDS: CARBIDOPA/LEVODOPA 25/100 TABLET (FP) PO SCH ×3 (06:39→21:47)
[2017-06-01] MEDS ORDERED: PT OWN MED DRAWER 7, Y5N ONE (09:33)
[2017-06-01] MEDS: CHOLECALCIFEROL (VITAMIN D3) 1,000 UNIT TABLET (FP) PO SCH (09:38)
[2017-06-01] MEDS: MEGESTROL ACETATE 400 MG/10 ML UNIT DOSE CUP PO SCH (09:38)
[2017-06-01] MEDS: RIVAROXABAN 20 MG TABLET PO SCH (09:39)
[2017-06-01] MEDS: D5-1/2NS+20 MEQ KCL - 1,000 ML IV SCH (21:48)
[2017-06-02] MEDS: CARBIDOPA/LEVODOPA 25/100 TABLET (FP) PO SCH ×3 (06:55→21:32)
[2017-06-02] MEDS: D5-1/2NS+20 MEQ KCL - 1,000 ML IV SCH (09:45)
[2017-06-02] MEDS: MEGESTROL ACETATE 400 MG/10 ML UNIT DOSE CUP PO SCH (09:45)
[2017-06-02] MEDS: RIVAROXABAN 20 MG TABLET PO SCH (09:46)
[2017-06-02] MEDS: CHOLECALCIFEROL (VITAMIN D3) 1,000 UNIT TABLET (FP) PO SCH (09:46)
--- NOTE | 2017-06-02 13:38 | PN ---
Progress Note (short form) - Note Progress Note: Has a dry cough No SOB Son at bedside Current Medications Generic Name Dose Route Start Last Admin Trade Name Freq PRN Reason Stop Dose Admin Acetaminophen 650 mg 05/30/17 09:57 Tylenol - PO Q4H PRN FEVER OR PAIN Carbidopa/Levodopa 1 each 05/30/17 14:00 06/02/17 14:43 Sinemet 25/100 - PO 1 each TID [facility] Administration Cholecalciferol 1,000 unit 05/30/17 10:00 06/02/17 09:46 Vitamin D3 - PO 1,000 unit DAILY [facility] Administration Levofloxacin 100 mls @ 100 mls/hr 06/02/17 10:45 06/02/17 11:07 Levaquin 500 Mg Premixed Ivpb - IVPB 100 mls/hr DAILY [facility] Administration Megestrol Acetate 400 mg 05/30/17 10:00 06/02/17 09:45 Megace Oral Suspension - PO 400 mg DAILY [facility] Administration Non-Formulary Medication 1 each 05/30/17 10:00 Memantine Hcl/Donepezil Hcl [Namzaric 28 Mg-10 Mg Capsule] PO DAILY [facility] Rivaroxaban 20 mg 05/30/17 10:00 06/02/17 09:46 Xarelto - PO 20 mg DAILY [facility] Administration Vital Signs - 24 hr 06/02/17 06/02/17 06/02/17 02:00 06:00 10:00 Temperature 98.5 F 99.2 F 99.1 F Pulse Rate 97 H 74 92 H Respiratory 20 20 20 Rate Blood Pressure 123/79 140/80 111/59 O2 Sat by Pulse 97 Oximetry (%) S1 S2 IRRR Lungs clear Abd- soft, NT No edema PLAN possible aspiration will check CXR had low grade fever Modify diet Empiric antibiotics-- Levaquin Awaiting NH placement Problem List - Problems (1) Altered mental state Code(s): R41.82 - ALTERED MENTAL STATUS, UNSPECIFIED (2) Confusion Code(s): R41.0 - DISORIENTATION, UNSPECIFIED (3) Dementia Code(s): F03.90 - UNSPECIFIED DEMENTIA WITHOUT BEHAVIORAL DISTURBANCE Qualifiers: Dementia type: unspecified type Dementia behavioral disturbance: with behavioral disturbance Qualified Code(s): F03.91 - Unspecified dementia with behavioral disturbance; F03.91 - Unspecified dementia with behavioral disturbance; F03.91 - Unspecified dementia with behavioral disturbance; F10.97 - Alcohol use, unspecified with alcohol-induced persisting dementia; F10.97 - Alcohol use, unspecified with alcohol-induced persisting dementia; F10.97 - Alcohol use, unspecified with alcohol-induced persisting dementia (4) Generalized weakness Code(s): R53.1 - WEAKNESS
[2017-06-03] MEDS: CARBIDOPA/LEVODOPA 25/100 TABLET (FP) PO SCH (05:50)
[2017-06-03] MEDS ORDERED: PT OWN MED DRAWER 7, Y5N ONE (09:28)
[2017-06-03] MEDS: RIVAROXABAN 20 MG TABLET PO SCH (09:39)
[2017-06-03] MEDS: CHOLECALCIFEROL (VITAMIN D3) 1,000 UNIT TABLET (FP) PO SCH (09:39)
[2017-06-03] MEDS: MEGESTROL ACETATE 400 MG/10 ML UNIT DOSE CUP PO SCH (09:39)
--- NOTE | 2017-06-03 11:26 | PN ---
Progress Note (short form) - Note Progress Note: Pt remains afebrile Will be dc to NH today has a slight cough no distress Vitals noted S1 S2 RRR Lungs decreased Abd- soft, NT No edema A/P CXR-- no infiltrates Continue with meds for dc to NH today May look into discharge summary for detailed report Problem List - Problems (1) Altered mental state Code(s): R41.82 - ALTERED MENTAL STATUS, UNSPECIFIED (2) Confusion Code(s): R41.0 - DISORIENTATION, UNSPECIFIED (3) Dementia Code(s): F03.90 - UNSPECIFIED DEMENTIA WITHOUT BEHAVIORAL DISTURBANCE Qualifiers: Dementia type: unspecified type Dementia behavioral disturbance: with behavioral disturbance Qualified Code(s): F03.91 - Unspecified dementia with behavioral disturbance (4) Generalized weakness Code(s): R53.1 - WEAKNESS
[2017-06-03 13:02] VITALS: BP 128/63; PULSE 95; TEMP 98.1
== END 2017-06-03 11:46 | DRG 884 ==
LOC: JER 18:15 → JERBED 22:30 → J4W 05-30 00:02
PROVIDERS: ADMIT Internal Medicine; ATTEND Internal Medicine
DX: F03.90 Unspecified dementia, unspecified severity, without behavioral disturbance, psychotic disturbance, mood disturbance, and anxiety (principal); M62.82 Rhabdomyolysis; R53.1 Weakness; I48.2 Chronic atrial fibrillation; I25.10 Atherosclerotic heart disease of native coronary artery without angina pectoris; R31.9 Hematuria, unspecified; G20 Parkinson's disease; R41.82 Altered mental status, unspecified; J40 Bronchitis, not specified as acute or chronic; I10 Essential (primary) hypertension
CPT/HCPCS: 36415; 70450-TC; 71010-TC; 80053; 80307; 81003; 81015; 82550; 82553; 82803; 83605; 84484; 85025; 87040; 87086; 93005; 93010; 97116-GP; 97161-GP; 99285-25; J7030